=== PATIENT | male | born 1960 | race Caucasian/White ===

== ENCOUNTER 2018-10-10 12:31 | Inpatient (IN) | payer OTHER ==
[2018-10-10] MEDS ORDERED: NS 0.9% 1000 ML** 1,000 ML IV ONE (12:41)
[2018-10-10] MEDS ORDERED: Diltiazem IV* 5 MG/ML 5 ML VIAL (for loading dose/IV Push) (25 MG) IV SLOW PU ONE (12:42)
[2018-10-10] MEDS ORDERED: methylPREDNISolone 125 MG* 2 ML VIAL IV ONE (12:42)
[2018-10-10] MEDS ORDERED: Albuterol/Ipratropium NEB.SOL* Albuterol 2.5 MG/Ipratropium 0.5 MG 3 ML INH ONE (12:46)
[2018-10-10] MEDS ORDERED: Albuterol/Ipratropium NEB.SOL* Albuterol 2.5 MG/Ipratropium 0.5 MG 3 ML ONE (12:47)
[2018-10-10 12:59] LABS: Hematocrit 45 % (42-52); Hemoglobin 14.7 g/dl (14.0-18.0); Mean Corpuscular HGB Conc 33 g/dl (31-36); Mean Corpuscular Hemoglobin 30 pg (27-31); Mean Corpuscular Volume 93 fL (80-94); Mean Platelet Volume 8.7 fL (7.4-10.4); Platelet Count 271 10^3/ul (150-450); Red Blood Count 4.86 10^6/ul (4.00-5.40); Red Cell Distribution Width 14 % (10.5-15); White Blood Count 21.4 10^3/ul (3.5-10.8)
[2018-10-10 13:07] LABS: INR 1.64 (0.77-1.02)
--- NOTE | 2018-10-10 13:08 | ED ---
HPI Cardiac - HPI Summary HPI Summary: Pt is a 57 y/o male brought in by EMS who presents to the ED c/o SOB. He was sent in from [facility]. As per EMS, he was found to be in rapid AFib with a HR upwards of 200 bpm. He was given adenosine and metoprolol, and was cardioverted with 100 J. Pt states he is constantly in AFib. For the past week hes been having a lot of blood in his stool. He began with his fatigue, SOB, and tachycardia 12 hours ago. He denies any CP. Pt states he also has had a cough and rhinorrhea for the past week. He denies using alcohol or drugs. Pt is a smoker. He is on Coumadin and Digoxin. PMHx AFib , CHF, rheumatic fever, mitral valve replacement. - History of Current Complaint Stated Complaint: CHEST PAIN/PALPATATIONS Time Seen by Provider: 10/10/18 12:33 Hx Obtained From: Patient, EMS Onset/Duration: Started Hours Ago - 12, Still Present Timing: Constant Current Severity: None Pain Intensity: 0 Pain Scale Used: 0-10 Numeric Aggravating Factor(s): Nothing Alleviating Factor(s): Nothing Associated Signs and Symptoms: Positive: Shortness of Breath Related History: Similar Episode/Dx as: - constant AFib - Allergy/Home Medications Allergies/Adverse Reactions: Allergies Allergy/AdvReac Type Severity Reaction Status Date / Time tramadol [From Ultra] Allergy Rash Verified 10/10/18 13:10 Home Medications: Home Medications Allopurinol 1 tab PO DAILY 10/10/18 [History Confirmed 10/10/18] Carvedilol 1.5 tab PO DAILY 10/10/18 [History Confirmed 10/10/18] Digoxin [Digitek] 0.125 mg PO BID 10/10/18 [History Confirmed 10/10/18] Doxazosin TAB* [Cardura TAB*] 4 mg PO BEDTIME 10/10/18 [History Confirmed ] Lasix 40 mg PO DAILY 10/10/18 [History Confirmed 10/10/18] Levothyroxine TAB* [Synthroid 75 MCG TAB*] 1 tab PO DAILY 10/10/18 [History Confirmed 10/10/18] Lidocaine PATCH 5%* [Lidoderm 5% Patch*] 1 patch TRANSDERM DAILY 10/10/18 [ History Confirmed 10/10/18] Lisinopril 5 mg PO DAILY 10/10/18 [History Confirmed 10/10/18] Spironolactone 1 tab PO DAILY 10/10/18 [History Confirmed 10/10/18] Warfarin Sodium [Coumadin] 5 mg PO DAILY 10/10/18 [History Confirmed 10/10/18] PMH/Surg Hx/FS Hx/Imm Hx Cardiovascular History: Reports: Hx Atrial Fibrillation, Hx Congestive Heart Failure, Hx Valvular Heart Disease - mitral replacement, Other Cardiovascular Problems/Disorders - hx rheumatic fever Musculoskeletal History: Reports: Hx Arthritis - Surgical History Surgery Procedure, Year, and Place: mitral valve replacement Infectious Disease History: No Infectious Disease History: Denies: Traveled Outside the [place] in Last 30 Days - ` - Family History Known Family History: Negative: Cardiac Disease - Social History Alcohol Use: None Hx Substance Use: No Substance Use Type: Reports: None Hx Tobacco Use: Yes Smoking Status (MU): Current Every Day Smoker Review of Systems Positive: Fatigue Positive: Nasal Discharge Positive: Palpitations - rapid. Negative: Chest Pain Positive: Shortness Of Breath, Cough Positive: Other - hematochezia All Other Systems Reviewed And Are Negative: Yes Physical Exam - Summary Physical Exam Summary: Appearance: Well appearing, moderate-severe pain distress Skin: warm, dry, reflects adequate perfusion Head/face: normal Eyes: EOMI, KIMMIE ENT: mucous membranes moist Neck: supple, non-tender Respiratory: expiratory wheezes, crackles in bases, moving very little air, abdominal breathing Cardiovascular: tachycardic with irregularly irregular rhythm, pulses rapid and irregular Abdomen: non-tender, soft Bowel Sounds: present Musculoskeletal: normal, strength/ROM intact Neuro: normal, sensory motor intact, A&Ox3 Triage Information Reviewed: Yes Vital Signs On Initial Exam: Initial Vitals Temp Pulse Resp BP Pulse Ox 96.4 F 150 37 119/78 89 10/10/18 12:38 10/10/18 12:38 10/10/18 12:38 10/10/18 12:38 10/10/18 12:38 Vital Signs Reviewed: Yes Diagnostics - Vital Signs Vital Signs Temp Pulse Resp BP Pulse Ox 10/10/18 12:38 96.4 F 150 37 119/78 89 - Laboratory Lab Results: Lab Results 10/10/18 Range/Units 12:45 WBC 21.4 H (3.5-10.8) 10^3/ul RBC 4.86 (4.00-5.40) 10^6/ul Hgb 14.7 (14.0-18.0) g/dl Hct 45 (42-52) % MCV 93 (80-94) fL MCH 30 (27-31) pg MCHC 33 (31-36) g/dl RDW 14 (10.5-15) % Plt Count 271 (150-450) 10^3/ul MPV 8.7 (7.4-10.4) fL Neut % (Auto) Pending Lymph % (Auto) Pending Vilas % (Auto) Pending Eos % (Auto) Pending Baso % (Auto) Pending Absolute Neuts (auto) Pending Absolute Lymphs (auto) Pending Absolute Monos (auto) Pending Absolute Eos (auto) Pending Absolute Basos (auto) Pending Absolute Nucleated RBC Pending Nucleated RBC % Pending Result Diagrams: 10/10/18 12:45 10/10/18 12:45 Lab Statement: Any lab studies that have been ordered have been reviewed, and results considered in the medical decision making process. - Radiology CXR Radiology Interpretation Completed By: Radiologist Summary of Radiographic Findings: Constellation of chest x-ray findings are consistent with cardiogenic. pulmonary edema likely with small bibasilar pleural effusions. ED physician reviewed radiology report. - EKG 12:36 Cardiac Rate: Other Rate - AFib - 138 bpm EKG Rhythm: Atrial Fibrillation ST Segment: Non-Specific Summary of EKG Findings: Nl axis, baseline artifact Re-Evaluation - Re-Evaluation First Eval Re-Evaluation Time: 13:14 Change: Improved Comment: Pts HR is down to 100. His breathing is improved but still abnormal. Disposition - Course Course Of Treatment: Nurse's notes reviewed. Patient presents in extremitas with rapid atrial fibrillation and acute respiratory failure. Acute pulmonary edema seen on chest x-ray. IV fluids, etc. stopped and patient was placed on high velocity nasal CPAP by Vapotherm on arrival to the ER. He greatly improved with this. He was given IV Lasix and his heart rate slowed without IV diltiazem. He was placed on IV diltiazem drip. We are waiting for his digoxin level to return. He will have to be maintained in the ICU until stabilized. ICU physician contacted and evaluated the patient at the bedside. Patient does have a history of cardiomyopathy and rheumatic heart disease as child. - Differential Dx - Cardiopulmonary Differential Diagnoses - Cardiopulmonary: Other - Acute decompensated heart failure, noncardiogenic pulmonary edema, pneumonia, influenza, rapid atrial fibrillation, pulmonary emboli - Diagnoses Provider Diagnoses: Acute respiratory failure, Rapid atrial fibrillation, Acute decompensated heart failure - Physician Notifications Discussed Care Of Patient With: Denver Lara Time Discussed With Above Provider: 13:24 Instructed by Provider To: Admit As Inpatient - Critical Care Time Critical Care Time: 30-74 min - CCT is EXCLUSIVE of separately billable procedures. Discharge - Sign-Out/Discharge Documenting (check all that apply): Patient Departure - Admit Patient Received Moderate/Deep Sedation with Procedure: No - Discharge Plan Condition: Critical Disposition: ADMITTED TO [facility] - Billing Disposition and Condition Condition: CRITICAL Disposition: Admitted to [facility] - Attestation Statements Document Initiated by Scribe: Yes Documenting Scribe: Elisabet Sawant Provider For Whom Scribe is Documenting (Include Credential): Black Bowling MD Scribe Attestation: Elisabet Ricci, scribed for Black Bowling MD on 10/10/18 at 1703. Scribe Documentation Reviewed: Yes Provider Attestation: The documentation as recorded by the Elisabet mcdonnell accurately reflects the service I personally performed and the decisions made by Black dupont MD Status of Scribe Document: Viewed
[2018-10-10 13:15] LABS: Influenza A Molecular NEGATIVE (Negative); Influenza B Molecular NEGATIVE (Negative)
[2018-10-10] MEDS ORDERED: Furosemide IV* 10 MG/ML 10 ML VIAL (100 MG) IV ONE (13:16)
[2018-10-10 13:22] LABS: ALT 14 U/L (7-52); AST 19 U/L (13-39); Albumin 4.2 g/dL (3.2-5.2); Albumin/Globulin Ratio 1.2 (1-3); Alkaline Phosphatase 54 U/L (34-104); Anion Gap 11 mmol/L (2-11); BUN/Creatinine Ratio 15.9 (8-20); Blood Urea Nitrogen 18 mg/dL (6-24); C Reactive Protein 20.01 mg/L (<8.01); CO2 Carbon Dioxide 22 mmol/L (22-32); Calcium 8.8 mg/dL (8.6-10.3); Chloride 103 mmol/L (101-111); Creatine Kinase 85 U/L (10-223); EGFR African American 80.6 (>60); EGFR Non-African American 66.7 (>60); Globulin 3.6 g/dL (2-4); Glucose 192 mg/dL (70-100); Potassium 4.6 mmol/L (3.5-5.0); Sodium 136 mmol/L (135-145); Total Protein 7.8 g/dL (6.4-8.9)
[2018-10-10 13:25] LABS: Troponin I 0.04 ng/mL (<0.04)
[2018-10-10 13:40] LABS: ABS Basophils 0.1 10^3/ul (0-0.2); ABS Eosinophils 0 10^3/ul (0-0.6); ABS Lymphocytes 0.9 10^3/ul (1.0-4.8); ABS Neutrophils 18.4 10^3/ul (1.5-7.7); ABS Nucleated RBC 0 10^3/ul; Eosinophil % 0.2 %; Lymphocyte % 4.2 %; Nucleated Red Blood Cells % 0
[2018-10-10 13:44] LABS: Digoxin < 0.3 ng/ml (0.8-2.0)
[2018-10-10] MEDS ORDERED: Lisinopril TAB* 5 MG PO ONE (14:08)
[2018-10-10] MEDS ORDERED: Heparin DRIP 25,000 UNITS(*) 25,000 UNITS/500 ML BAG IV SCH (14:45)
[2018-10-10] MEDS ORDERED: Diltiazem IV VIAL* 125 MG in NS 0.9% 100 ML* 100 ML IV SCH (15:00)
[2018-10-10] MEDS ORDERED: Heparin VIAL(*) 5000 UNITS/ML VIAL (FIVE THOUSAND) ONE (15:25)
[2018-10-10] MEDS: Furosemide IV* 100 MG in NS 0.9% 100 ML* 90 ML IV SCH (15:30)
[2018-10-10 16:22] LABS: Magnesium 1.6 mg/dL (1.9-2.7)
[2018-10-10] MEDS: cefTRIAXone(*) 1 GM in NS 0.9% 50 ML* 50 ML IVPB SCH (16:45)
[2018-10-10] MEDS: Azithromycin IV(*) 500 MG in NS 0.9% 250 ML* 250 ML IVPB SCH (17:05)
[2018-10-10 17:09] LABS: Urine Appearance Clear; Urine Bacteria Absent (Absent); Urine Bilirubin Negative (Negative); Urine Blood 1+ (Negative); Urine Color Yellow; Urine Glucose Negative (Negative); Urine Ketones Negative (Negative); Urine Nitrite Negative (Negative); Urine Protein Negative (Negative); Urine Red Blood Cell Trace(0-2/hpf) (Absent); Urine Specific Gravity 1.006 (1.010-1.030); Urine Urobilinogen Negative (Negative); Urine White Blood Cell Absent (Absent)
--- NOTE | 2018-10-10 17:14 | HP ---
HISTORY AND PHYSICAL: DATE OF ADMISSION: CHIEF COMPLAINT: Shortness of breath. HISTORY OF PRESENT ILLNESS: The patient is a 57-year-old male with a past medical history of heart disease including mitral valve replacement, rheumatic heart disease, and atrial fibrillation. The patient was brought in by EMS to the ED with increasing shortness of breath. When he arrived in the emergency department, he was noted to be in rapid atrial fibrillation with a heart rate closer to 150 to 200s. He was given adenosine, metoprolol, and electrocardioversion was performed at 100 joules. The patient states that he has been feeling short of breath for many days. He is also reporting some fevers. He has also noticed some blood in his stool. He denies any chest pain or chest tightness. He is a current smoker. Denies any worsening cough or sputum production. He has had cough which is at his baseline. He denies any drugs or alcohol abuse. He states that he is compliant with all of his medications. He is currently a resident of a correctional facility. PAST MEDICAL HISTORY: Consists of: 1. Congestive heart failure. 2. Atrial fibrillation. 3. Rheumatic heart disease with mitral valve replacement in 2007. PAST SURGICAL HISTORY: He had mitral valve replacement in 2007. MEDICATIONS: Current medications include: 1. Allopurinol. 2. Carvedilol 1.5 mg p.o. daily. 3. Digoxin 0.125 mg twice daily. 4. tab 4 mg p.o. at bedtime. 5. Lasix 40 mg daily. 6. Synthroid mcg tablet daily. 7. Lidocaine patch. 8. Lisinopril 5 mg daily. 9. Spironolactone 1 tablet daily. ALLERGIES: To TORADOL. SOCIAL HISTORY: Denies any alcohol, drug abuse currently. He does smoke on a daily basis. FAMILY HISTORY: Negative for heart disease. REVIEW OF SYSTEMS: Positive for increasing shortness of breath, cough, sputum production, and fatigue. Remainder of the review of systems was negative. PHYSICAL EXAMINATION GENERAL: I found a middle-aged male, in respiratory distress. He was awake, alert, oriented, answering questions appropriately. VITAL SIGNS: He was afebrile with a heart rate of anywhere from 110 to 130, respiratory rate in the 30s, he was saturating 98% on 100% FiO2 via a Vapotherm mask; blood pressure was 110/72, 140/80. HEENT: Mucous membranes pink and moist. Anicteric. Oral Mucosa: There was no erythema or exudate noted. NECK: Supple. There was mild JVD. CARDIOVASCULAR: S1, S2 irregular. Tachycardia with no murmurs appreciated. ABDOMEN: Soft, nontender. Positive bowel sounds. EXTREMITIES: There was edema, but no cyanosis noted. NEUROLOGIC: He was awake, alert, oriented. Moving all 4 extremities. There were no focal deficits noted. DIAGNOSTIC STUDIES/LAB DATA: Laboratory workup revealed a WBC count of 21.4, hemoglobin of 14.7, hematocrit of 45, platelet count of 271. His INR was 1.64. He is currently on Coumadin. His ABG revealed a pH of 7.36, pCO2 of 36, pO2 of 131. Sodium 136, potassium 4.6, chloride of 103, bicarb of 22, anion gap of 11, BUN of 18, creatinine of 1.13, glucose of 192. Lactic acid was 2.3. Calcium 8.8. LFTs are within normal limits. Troponin was 0.04. C-reactive protein was 20. BNP was 544. Albumin was 4.2. Dig level of less than 0.3. Influenza A and B were negative. X-ray revealed bilateral opacities consistent with pulmonary edema versus pneumonia. EKG revealed atrial fibrillation. IMPRESSION: A 57-year-old gentleman with a past medical history of dilated cardiomyopathy, rheumatic heart disease, and valvular heart disease presents to the emergency department with increasing shortness of breath and findings of congestive heart failure. He is also noted to be in atrial fibrillation with rapid ventricular rate. The patient was started on diltiazem infusion to better control his heart rate. I also started the patient on heparin infusion since he has a history of mitral valve replacement and has been on anticoagulation for atrial fibrillation and valve indication. Other cardiac medications will be continued including lisinopril and spironolactone. Findings of increased white count and history of fever and findings on chest x- ray concerning for possible pneumonia, we will initiate ceftriaxone and azithromycin. We will order blood cultures and sputum cultures for further evaluation. Echocardiogram and a cardiology consult has been requested. History of Blood per rectum No signs of bleeding, will continue to monitor. [id number]/[facility] #: [id number] [facility]
[2018-10-10] MEDS: Digoxin TAB* 0.125 MG PO SCH (22:17)
[2018-10-10 23:42] LABS: BUN/Creatinine Ratio 18.1 (8-20); Calcium 8.7 mg/dL (8.6-10.3); EGFR Non-African American 46.3 (>60); Potassium 4.4 mmol/L (3.5-5.0)
[2018-10-11] MEDS: Levothyroxine TAB* 75 MCG TAB PO SCH (05:50)
[2018-10-11 06:04] LABS: Hematocrit 41 % (42-52); Hemoglobin 13.6 g/dl (14.0-18.0); Mean Corpuscular HGB Conc 33 g/dl (31-36); Mean Corpuscular Hemoglobin 31 pg (27-31); Mean Corpuscular Volume 93 fL (80-94); Mean Platelet Volume 9.1 fL (7.4-10.4); Platelet Count 172 10^3/ul (150-450); Red Cell Distribution Width 14 % (10.5-15)
[2018-10-11 06:19] LABS: Phosphorus 3.7 mg/dL (2.5-5.0)
[2018-10-11 06:49] LABS: Activated Partial Thrombo Time 36.2 seconds (26.0-36.3)
[2018-10-11 06:54] LABS: ABS Basophils 0.1 10^3/ul (0-0.2); ABS Eosinophils 0 10^3/ul (0-0.6); ABS Lymphocytes 0.7 10^3/ul (1.0-4.8); ABS Neutrophils 19.3 10^3/ul (1.5-7.7); ABS Nucleated RBC 0 10^3/ul; Eosinophil % 0.1 %; Lymphocyte % 3.3 %; Nucleated Red Blood Cells % 0
[2018-10-11 06:57] LABS: Magnesium 1.7 mg/dL (1.9-2.7)
[2018-10-11] MEDS ORDERED: Heparin VIAL(*) 5000 UNITS/ML VIAL (FIVE THOUSAND) ONE (07:17)
[2018-10-11] MEDS: Allopurinol TAB* 100 MG PO SCH (08:33)
[2018-10-11] MEDS: Spironolactone TAB* 25 MG PO SCH (08:33)
[2018-10-11] MEDS: Digoxin TAB* 0.125 MG PO SCH ×2 (08:33→21:49)
[2018-10-11] MEDS ORDERED: Heparin VIAL(*) 5000 UNITS/ML VIAL (FIVE THOUSAND) SUBCUT PRN (09:43)
[2018-10-11] MEDS ORDERED: Magnesium Sulfate 2 GM IV* 2 GM/50 ML BAG IVPB ONE (11:11)
[2018-10-11 12:13] LABS: INR 1.38 (0.77-1.02)
[2018-10-11] MEDS: methylPREDNISolone SOD 40 MG* 1 ML VIAL IV SCH (12:46)
[2018-10-11] MEDS: Furosemide IV* 10 MG/ML VIAL (40 MG) IV SLOW PU SCH (12:46)
[2018-10-11] MEDS: Enoxaparin(*) 150 MG/ML 1 ML SYRINGE SUBCUT SCH (12:46)
--- NOTE | 2018-10-11 12:52 | PN ---
Progress Note - Progress Note Date of Service: 10/11/18 - Progress note Note: Pt seen and examined at bedside this am. Pt reports feeling better. Reports he couldnot sleep well last night, woke up with gaping episodes. Pt has h/o sleep apnea, has not been on CPAP. Pt reported that he has not been receiving necessary CPAP supplies at [facility], was not able to receive distilled water and couldnot use CPAP. He also reports having dry nasal passages. He was admitted for SOB yesterday Active Medications Generic Name Dose Route Start Last Admin Trade Name Marlon PRN Reason Stop Dose Admin Allopurinol 100 mg 10/11/18 09:00 10/11/18 08:33 Zyloprim Tab* PO 100 mg DAILY RICCARDO Administration Digoxin 0.125 mg 10/10/18 21:00 10/11/18 08:33 Lanoxin Tab* PO 0.125 mg BID RICCARDO Administration Enoxaparin Sodium 120 mg 10/11/18 12:00 Lovenox(*) SUBCUT Q12H RICCARDO Furosemide 40 mg 10/11/18 12:00 Lasix Iv* IV SLOW PU DAILY [facility] Ceftriaxone Sodium 1 gm/ 50 mls @ 200 mls/hr 10/10/18 15:00 10/10/18 16:45 Sodium Chloride IVPB 200 mls/hr Q24H RICCARDO Administration Azithromycin 500 mg/ Sodium 250 mls @ 250 mls/hr 10/10/18 16:00 10/10/18 17: 05 Chloride IVPB 250 mls/hr Q24H RICCARDO Administration Levothyroxine Sodium 75 mcg 10/11/18 06:00 10/11/18 05:50 Synthroid Tab* PO 75 mcg DAILY@0600 RICCARDO Administration Methylprednisolone Sodium Succinate 40 mg 10/11/18 12:00 Solu-Medrol 40 Mg IV Q12H [facility] Pharmacy Profile Note 1 note 10/11/18 17:00 Coumadin Per Pharmacy* FOLLOW UP .PER PHARMACY PROTOC [facility] Protocol Spironolactone 25 mg 10/11/18 09:00 10/11/18 08:33 Aldactone Tab* PO 25 mg DAILY RICCARDO Administration Warfarin Sodium 5 mg 10/11/18 17:00 Coumadin Tab(*) PO DAILY@1700 [facility] Protocol Vital Signs Temp Pulse Resp BP Pulse Ox 98.1 F 61 28 89/63 97 10/11/18 11:32 10/11/18 11:32 10/11/18 12:01 10/11/18 11:32 10/11/18 11:32 O/E: Pt in NAD HEENT: PERRLA, No JVD Lungs: Diminished air entry at bases CVS: S1, S2+, irregular Abd: Soft, BS+ Ext: Normal ROM Neuro: No focal deficits Skin: No rash Laboratory Results - last 24 hr 10/10/18 10/10/18 10/10/18 12:45 12:45 12:45 WBC 21.4 H RBC 4.86 Hgb 14.7 Hct 45 MCV 93 MCH 30 MCHC 33 RDW 14 Plt Count 271 MPV 8.7 Neut % (Auto) 85.9 Lymph % (Auto) 4.2 Calloway % (Auto) 9.2 Eos % (Auto) 0.2 Baso % (Auto) 0.5 Absolute Neuts (auto) 18.4 H Absolute Lymphs (auto) 0.9 L Absolute Monos (auto) 2.0 H Absolute Eos (auto) 0 Absolute Basos (auto) 0.1 Absolute Nucleated RBC 0 Nucleated RBC % 0 INR (Anticoag Therapy) 1.64 H APTT Patient Temperature ABG pH ABG pH (Temp Correct) ABG pCO2 ABG pCO2 (Temp Corrct ABG pO2 ABG pO2 (Temp Correct ABG HCO3 ABG O2 Saturation ABG Base Excess Respiration Rate O2 Delivery Device Ventilator Type Vent Mode FiO2 Inspiratory Time PEEP Pressure Support Pressure Control EPAP IPAP BiPAP Sodium 136 Potassium 4.6 Chloride 103 Carbon Dioxide 22 Anion Gap 11 BUN 18 Creatinine 1.13 Est GFR ( Amer) 80.6 Est GFR (Non-Af Amer) 66.7 BUN/Creatinine Ratio 15.9 Glucose 192 H Lactic Acid Calcium 8.8 Phosphorus Magnesium 1.6 L Total Bilirubin 1.00 AST 19 ALT 14 Alkaline Phosphatase 54 Total Creatine Kinase 85 Troponin I 0.04 H* C-Reactive Protein 20.01 H B-Natriuretic Peptide Total Protein 7.8 Albumin 4.2 Globulin 3.6 Albumin/Globulin Ratio 1.2 Urine Color Urine Appearance Urine pH Ur Specific Martin Urine Protein Urine Ketones Urine Blood Urine Nitrate Urine Bilirubin Urine Urobilinogen Ur Leukocyte Esterase Urine WBC (Auto) Urine RBC (Auto) Urine Bacteria Urine Glucose Digoxin < 0.3 L Influenza A (Rapid) Influenza B (Rapid) 10/10/18 10/10/18 10/10/18 12:45 12:45 13:03 WBC RBC Hgb Hct MCV MCH MCHC RDW Plt Count MPV Neut % (Auto) Lymph % (Auto) Calloway % (Auto) Eos % (Auto) Baso % (Auto) Absolute Neuts (auto) Absolute Lymphs (auto) Absolute Monos (auto) Absolute Eos (auto) Absolute Basos (auto) Absolute Nucleated RBC Nucleated RBC % INR (Anticoag Therapy) APTT Patient Temperature ABG pH ABG pH (Temp Correct) ABG pCO2 ABG pCO2 (Temp Corrct ABG pO2 ABG pO2 (Temp Correct ABG HCO3 ABG O2 Saturation ABG Base Excess Respiration Rate O2 Delivery Device Ventilator Type Vent Mode FiO2 Inspiratory Time PEEP Pressure Support Pressure Control EPAP IPAP BiPAP Sodium Potassium Chloride Carbon Dioxide Anion Gap BUN Creatinine Est GFR ( Amer) Est GFR (Non-Af Amer) BUN/Creatinine Ratio Glucose Lactic Acid 2.3 H* Calcium Phosphorus Magnesium Total Bilirubin AST ALT Alkaline Phosphatase Total Creatine Kinase Troponin I C-Reactive Protein B-Natriuretic Peptide 544 H Total Protein Albumin Globulin Albumin/Globulin Ratio Urine Color Urine Appearance Urine pH Ur Specific Martin Urine Protein Urine Ketones Urine Blood Urine Nitrate Urine Bilirubin Urine Urobilinogen Ur Leukocyte Esterase Urine WBC (Auto) Urine RBC (Auto) Urine Bacteria Urine Glucose Digoxin Influenza A (Rapid) Negative Influenza B (Rapid) Negative 10/10/18 10/10/18 10/10/18 13:30 16:00 22:25 WBC RBC Hgb Hct MCV MCH MCHC RDW Plt Count MPV Neut % (Auto) Lymph % (Auto) Calloway % (Auto) Eos % (Auto) Baso % (Auto) Absolute Neuts (auto) Absolute Lymphs (auto) Absolute Monos (auto) Absolute Eos (auto) Absolute Basos (auto) Absolute Nucleated RBC Nucleated RBC % INR (Anticoag Therapy) APTT 87.5 H Patient Temperature Not Reportable ABG pH 7.36 ABG pH (Temp Correct) Not Reportable ABG pCO2 36 ABG pCO2 (Temp Corrct Not Reportable ABG pO2 131 H ABG pO2 (Temp Correct Not Reportable ABG HCO3 21.4 ABG O2 Saturation 99.6 H ABG Base Excess -4.5 L Respiration Rate Not Reportable O2 Delivery Device vapo Ventilator Type Not Reportable Vent Mode Not Reportable FiO2 100 Inspiratory Time Not Reportable PEEP Not Reportable Pressure Support Not Reportable Pressure Control Not Reportable EPAP Not Reportable IPAP Not Reportable BiPAP Not Reportable Sodium Potassium Chloride Carbon Dioxide Anion Gap BUN Creatinine Est GFR ( Amer) Est GFR (Non-Af Amer) BUN/Creatinine Ratio Glucose Lactic Acid Calcium Phosphorus Magnesium Total Bilirubin AST ALT Alkaline Phosphatase Total Creatine Kinase Troponin I C-Reactive Protein B-Natriuretic Peptide Total Protein Albumin Globulin Albumin/Globulin Ratio Urine Color Yellow Urine Appearance Clear Urine pH 5.0 Ur Specific Martin 1.006 L Urine Protein Negative Urine Ketones Negative Urine Blood 1+ A Urine Nitrate Negative Urine Bilirubin Negative Urine Urobilinogen Negative Ur Leukocyte Esterase Negative Urine WBC (Auto) Absent Urine RBC (Auto) Trace(0-2/hpf) Urine Bacteria Absent Urine Glucose Negative Digoxin Influenza A (Rapid) Influenza B (Rapid) 10/10/18 10/11/18 10/11/18 22:25 05:55 05:55 WBC 21.0 H RBC 4.40 Hgb 13.6 L Hct 41 L MCV 93 MCH 31 MCHC 33 RDW 14 Plt Count 172 MPV 9.1 Neut % (Auto) 91.7 Lymph % (Auto) 3.3 Calloway % (Auto) 4.5 Eos % (Auto) 0.1 Baso % (Auto) 0.4 Absolute Neuts (auto) 19.3 H Absolute Lymphs (auto) 0.7 L Absolute Monos (auto) 1.0 H Absolute Eos (auto) 0 Absolute Basos (auto) 0.1 Absolute Nucleated RBC 0 Nucleated RBC % 0 INR (Anticoag Therapy) APTT Patient Temperature ABG pH ABG pH (Temp Correct) ABG pCO2 ABG pCO2 (Temp Corrct ABG pO2 ABG pO2 (Temp Correct ABG HCO3 ABG O2 Saturation ABG Base Excess Respiration Rate O2 Delivery Device Ventilator Type Vent Mode FiO2 Inspiratory Time PEEP Pressure Support Pressure Control EPAP IPAP BiPAP Sodium 135 Potassium 4.4 Chloride 101 Carbon Dioxide 23 Anion Gap 11 BUN 28 H Creatinine 1.55 H Est GFR ( Amer) 56.0 Est GFR (Non-Af Amer) 46.3 BUN/Creatinine Ratio 18.1 Glucose 163 H Lactic Acid Calcium 8.7 Phosphorus 3.7 Magnesium 1.7 L Total Bilirubin AST ALT Alkaline Phosphatase Total Creatine Kinase Troponin I C-Reactive Protein B-Natriuretic Peptide Total Protein Albumin Globulin Albumin/Globulin Ratio Urine Color Urine Appearance Urine pH Ur Specific Martin Urine Protein Urine Ketones Urine Blood Urine Nitrate Urine Bilirubin Urine Urobilinogen Ur Leukocyte Esterase Urine WBC (Auto) Urine RBC (Auto) Urine Bacteria Urine Glucose Digoxin Influenza A (Rapid) Influenza B (Rapid) 10/11/18 05:55 WBC RBC Hgb Hct MCV MCH MCHC RDW Plt Count MPV Neut % (Auto) Lymph % (Auto) Calloway % (Auto) Eos % (Auto) Baso % (Auto) Absolute Neuts (auto) Absolute Lymphs (auto) Absolute Monos (auto) Absolute Eos (auto) Absolute Basos (auto) Absolute Nucleated RBC Nucleated RBC % INR (Anticoag Therapy) 1.38 H APTT 36.2 Patient Temperature ABG pH ABG pH (Temp Correct) ABG pCO2 ABG pCO2 (Temp Corrct ABG pO2 ABG pO2 (Temp Correct ABG HCO3 ABG O2 Saturation ABG Base Excess Respiration Rate O2 Delivery Device Ventilator Type Vent Mode FiO2 Inspiratory Time PEEP Pressure Support Pressure Control EPAP IPAP BiPAP Sodium Potassium Chloride Carbon Dioxide Anion Gap BUN Creatinine Est GFR ( Amer) Est GFR (Non-Af Amer) BUN/Creatinine Ratio Glucose Lactic Acid Calcium Phosphorus Magnesium Total Bilirubin AST ALT Alkaline Phosphatase Total Creatine Kinase Troponin I C-Reactive Protein B-Natriuretic Peptide Total Protein Albumin Globulin Albumin/Globulin Ratio Urine Color Urine Appearance Urine pH Ur Specific Martin Urine Protein Urine Ketones Urine Blood Urine Nitrate Urine Bilirubin Urine Urobilinogen Ur Leukocyte Esterase Urine WBC (Auto) Urine RBC (Auto) Urine Bacteria Urine Glucose Digoxin Influenza A (Rapid) Influenza B (Rapid) I/R: 57 y o m with h/o rheumatic heart disease with mitral valvve disease a/w SOB, found to be in A.fib with RVR and fluid overloaded. Pt was started on cardizem drip that was tapered off, diuresed with Lasix. Pt improved this am, off Cardizem drip c/w Digoxin D/freddy heparin drip and switched to Lovenox, will start dosing Coumadin Prior EF not known, ECHO pending He has smoking history, not dx with COPD in the past, no wheeze on auscultation today He is requiring O2, will titrate as tolerated to keep O2 above 92% c/w bronchodilators prn Had elevated WBC count on admission, had fever prior to admission and was started on abx. Septic w/u negative to date Lactate elevated on admission, will f/u Magnesium repleted Cardiac diet Smoking cessation education and counseling C/w steroid taper For transfer to medical floor
[2018-10-11 13:05] LABS: BUN/Creatinine Ratio 25.6 (8-20); Calcium 8.9 mg/dL (8.6-10.3); EGFR African American 74.5 (>60); EGFR Non-African American 61.6 (>60); Potassium 4.4 mmol/L (3.5-5.0)
[2018-10-11 13:22] LABS: BUN/Creatinine Ratio 31.6 (8-20); EGFR African American 77.5 (>60); Potassium 4.2 mmol/L (3.5-5.0)
[2018-10-11] MEDS: Furosemide IV* 100 MG in NS 0.9% 100 ML* 90 ML IV SCH (16:01)
[2018-10-11] MEDS: cefTRIAXone(*) 1 GM in NS 0.9% 50 ML* 50 ML IVPB SCH (17:15)
[2018-10-11] MEDS: Azithromycin IV(*) 500 MG in NS 0.9% 250 ML* 250 ML IVPB SCH (21:48)
[2018-10-11] MEDS: Warfarin TAB(*) 5 MG PO SCH (21:48)
[2018-10-12] MEDS: Enoxaparin(*) 150 MG/ML 1 ML SYRINGE SUBCUT SCH ×3 (00:18→23:54)
[2018-10-12] MEDS: methylPREDNISolone SOD 40 MG* 1 ML VIAL IV SCH ×2 (00:19→11:55)
[2018-10-12] MEDS: Acetaminophen TAB* 325 MG PO PRN ×2 (01:36→16:06)
[2018-10-12] MEDS: Gabapentin CAP(*) 100 MG PO SCH ×3 (01:37→20:39)
[2018-10-12 05:41] LABS: Hematocrit 40 % (42-52); Hemoglobin 13.2 g/dl (14.0-18.0); Mean Corpuscular HGB Conc 33 g/dl (31-36); Mean Corpuscular Hemoglobin 31 pg (27-31); Mean Corpuscular Volume 93 fL (80-94); Mean Platelet Volume 9.5 fL (7.4-10.4); Platelet Count 200 10^3/ul (150-450); Red Blood Count 4.33 10^6/ul (4.00-5.40); Red Cell Distribution Width 14 % (10.5-15); White Blood Count 23.1 10^3/ul (3.5-10.8)
[2018-10-12] MEDS: Levothyroxine TAB* 75 MCG TAB PO SCH (05:41)
[2018-10-12 05:48] LABS: INR 1.24 (0.77-1.02)
[2018-10-12 05:59] LABS: BUN/Creatinine Ratio 41.9 (8-20); Calcium 8.9 mg/dL (8.6-10.3); EGFR African American 77.5 (>60)
[2018-10-12 06:09] LABS: ABS Basophils 0 10^3/ul (0-0.2); ABS Eosinophils 0 10^3/ul (0-0.6); ABS Lymphocytes 0.8 10^3/ul (1.0-4.8); ABS Monocytes 1.1 10^3/ul (0-0.8); ABS Neutrophils 21.2 10^3/ul (1.5-7.7); ABS Nucleated RBC 0 10^3/ul; Eosinophil % 0 %; Lymphocyte % 3.3 %; Nucleated Red Blood Cells % 0
[2018-10-12] MEDS: Digoxin TAB* 0.125 MG PO SCH ×2 (08:25→20:38)
[2018-10-12] MEDS: Furosemide IV* 10 MG/ML VIAL (40 MG) IV SLOW PU SCH (08:25)
[2018-10-12] MEDS: Spironolactone TAB* 25 MG PO SCH (08:25)
[2018-10-12] MEDS: Allopurinol TAB* 100 MG PO SCH (08:25)
[2018-10-12 09:25] LABS: C Reactive Protein 63.76 mg/L (<8.01); Magnesium 2.2 mg/dL (1.9-2.7)
[2018-10-12] MEDS ORDERED: Perflutren Lipid Microsphere* 3 ML VIAL ONE (13:18)
--- NOTE | 2018-10-12 15:00 | PN ---
Subjective Date of Service: 10/12/18 Interval History: Called to patient's bedside by nurse who reports patient was stating he was having chest pain "6 " out of 10 in the center of his chest. When I arrived at the bedside patient denied having chest pain and reports the last time he had chest "pressure" was last evening when the nurse mentioned he had an "arrhythmia ". Tele reveal 4 and 9 beat run of VT last evening. Patient reports he continues to wake in the evening gasping for air which scares his and causes heart to race occasionally. He initially reports he is not complaint with cpap machine, but when told this could be the cause of his symptoms he recants and states he is complaint. Patient wants to talk at length about the services he is not provided at his facility including distilled water for his cpap machine and wheelchair. He reports he believes he current situation is being forced to walk at his facility and not allowed to use wheelchair. Currently patient denies chest pain, sob, palpitations, nausea, vomiting, diarrhea, fever, chills. Objective Active Medications: Acetaminophen (Tylenol Tab*) 650 mg PO Q4H PRN PRN Reason: PAIN Last Admin: 10/12/18 01:36 Dose: 650 mg Allopurinol (Zyloprim Tab*) 100 mg PO DAILY ON LICENSE OF [facility] Last Admin: 10/12/18 08:25 Dose: 100 mg Digoxin (Lanoxin Tab*) 0.125 mg PO BID ON LICENSE OF [facility] Last Admin: 10/12/18 08:25 Dose: 0.125 mg Enoxaparin Sodium (Lovenox(*)) 120 mg SUBCUT Q12H ON LICENSE OF [facility] Last Admin: 10/12/18 11:55 Dose: 120 mg Furosemide (Lasix Iv*) 40 mg IV SLOW PU DAILY ON LICENSE OF [facility] Last Admin: 10/12/18 08:25 Dose: 40 mg Gabapentin (Neurontin Cap(*)) 100 mg PO BID ON LICENSE OF [facility] Last Admin: 10/12/18 08:25 Dose: 100 mg Ceftriaxone Sodium 1 gm/ (Sodium Chloride) 50 mls @ 200 mls/hr IVPB Q24H ON LICENSE OF [facility] Last Admin: 10/11/18 17:15 Dose: 200 mls/hr Azithromycin 500 mg/ Sodium (Chloride) 250 mls @ 250 mls/hr IVPB Q24H ON LICENSE OF [facility] Last Admin: 10/11/18 21:48 Dose: 250 mls/hr Levothyroxine Sodium (Synthroid Tab*) 75 mcg PO DAILY@0600 ON LICENSE OF [facility] Last Admin: 10/12/18 05:41 Dose: 75 mcg Methylprednisolone Sodium Succinate (Solu-Medrol 40 Mg) 40 mg IV Q12H ON LICENSE OF [facility] Last Admin: 10/12/18 11:55 Dose: 40 mg Spironolactone (Aldactone Tab*) 25 mg PO DAILY ON LICENSE OF [facility] Last Admin: 10/12/18 08:25 Dose: 25 mg Warfarin Sodium (Coumadin Tab(*)) 5 mg PO DAILY@1700 ON LICENSE OF [facility]; Protocol Last Admin: 10/11/18 21:48 Dose: 5 mg Vital Signs - 8 hr 10/12/18 10/12/18 10/12/18 08:00 08:03 08:25 Temperature 97.6 F Pulse Rate 60 75 Respiratory 18 20 15 Rate Blood Pressure 110/67 (mmHg) O2 Sat by Pulse 100 Oximetry 10/12/18 10/12/18 11:02 14:19 Temperature 97.2 F Pulse Rate 81 Respiratory 22 Rate Blood Pressure 134/73 (mmHg) O2 Sat by Pulse 98 100 Oximetry Oxygen Devices in Use Now: None Appearance: Comfortable, NAD Eyes: No Scleral Icterus Ears/Nose/Mouth/Throat: Clear Oropharnyx, Mucous Membranes Moist Neck: NL Appearance and Movements; NL JVP Respiratory: Symmetrical Chest Expansion and Respiratory Effort, Clear to Auscultation Cardiovascular: NL Sounds; No Murmurs; No JVD, No Edema, - - Irregular rhythm but rate controlled Abdominal: NL Sounds; No Tenderness; No Distention Lymphatic: No Cervical Adenopathy Extremities: No Clubbing, Cyanosis Skin: No Rash or Ulcers Neurological: Alert and Oriented x 3 Nutrition: Taking PO's Result Diagrams: 10/12/18 05:28 10/12/18 05:28 Additional Lab and Data: Laboratory Results - last 24 hr 10/12/18 10/12/18 10/12/18 05:28 05:28 05:28 WBC 23.1 H RBC 4.33 Hgb 13.2 L Hct 40 L MCV 93 MCH 31 MCHC 33 RDW 14 Plt Count 200 MPV 9.5 Neut % (Auto) 91.9 Lymph % (Auto) 3.3 Taylor % (Auto) 4.7 Eos % (Auto) 0 Baso % (Auto) 0.1 Absolute Neuts (auto) 21.2 H Absolute Lymphs (auto) 0.8 L Absolute Monos (auto) 1.1 H Absolute Eos (auto) 0 Absolute Basos (auto) 0 Absolute Nucleated RBC 0 Nucleated RBC % 0 INR (Anticoag Therapy) 1.24 H Sodium 133 L Potassium 5.0 Chloride 101 Carbon Dioxide 26 Anion Gap 6 BUN 49 H Creatinine 1.17 Est GFR ( Amer) 77.5 Est GFR (Non-Af Amer) 64.0 BUN/Creatinine Ratio 41.9 H Glucose 135 H Calcium 8.9 Magnesium 2.2 C-Reactive Protein 63.76 H B-Natriuretic Peptide 10/12/18 05:28 WBC RBC Hgb Hct MCV MCH MCHC RDW Plt Count MPV Neut % (Auto) Lymph % (Auto) Taylor % (Auto) Eos % (Auto) Baso % (Auto) Absolute Neuts (auto) Absolute Lymphs (auto) Absolute Monos (auto) Absolute Eos (auto) Absolute Basos (auto) Absolute Nucleated RBC Nucleated RBC % INR (Anticoag Therapy) Sodium Potassium Chloride Carbon Dioxide Anion Gap BUN Creatinine Est GFR ( Amer) Est GFR (Non-Af Amer) BUN/Creatinine Ratio Glucose Calcium Magnesium C-Reactive Protein B-Natriuretic Peptide 389 H Microbiology and Other Data: Microbiology Microbiology 10/11/18 07:44 Blood Venous Aerobic Blood Culture - Preliminary No Growth Day 1 10/11/18 07:44 Blood Venous Anaerobic Blood Culture - Final Not Reportable 10/11/18 07:51 Blood Venous Blood Culture - Preliminary No Growth Day 1 10/10/18 16:00 Nasal Nasal Screen MRSA (PCR) - Final Mrsa Not Detected 10/10/18 12:45 Nasopharyngeal Influenza Types A,B Antigen - Final Specimen received for Influenza A/B Molecular testing Assess/Plan/Problems-Billing Assessment: 57 yr old male with pmh of heart disease including mitral valve replacement, rheumatic heart disease and atrial fibrillation who was brought to ED due to shortness of breath and was found to be in afib with HR of 150s to 200 - Patient Problems (1) Atrial fibrillation Comment: - S/P cardioversion and diltiazem drip. Drip titrated and patient on Digoxin. - Afib/flutter with rate 70s to 80s on tele - Was on Heparin drip, now bridge back to coumadin - Cardiology not on board currently as patient is rate controlled, but will consult if changes. (2) Cardiomyopathy Comment: - Found to be in fluid overload on admission and diuresed with Lasix - Now appears euvolemic - Echo completed today and notes estimated EF of 30 to 35%; Requested records for previous echo to compare (3) Rheumatic heart disease Comment: - S/P mitral valve replacement - Bridge with lovenox back to home coumadin (4) Shortness of breath Comment: - Given shortness of breath, leukocytosis, chest xray results, and history of fever; patient was started on Zithro (day 3) and Rocephin (day 3) - Initially requring O2, but now oxygen saturation wnl on room air. - Was on IV steriods; PO prednisone starting tomorrow (5) Sleep apnea Comment: - Noncomplaint - Ordered placed for hospital Cpap - Educated on risks of untreated sleep apnea (6) Ventricular tachycardia Comment: - Last evening had a 4 beat run of VT and then a 9 beat run of VT - Mag 2.2 and K + 5.0 (7) Full code status (8) DVT prophylaxis Comment: - Lovenox and bridging to home coumadin Points of Discussion: Inpatient. Attending: Jc Singh
--- NOTE | 2018-10-12 15:04 | ECHO ---
Patient: REINA SANDERSON [id number] [facility] Rec#: [id number] : 1960 Date: 10/12/2018 Age: 57y Height: 178 cm / 70.1 in Weight: 121 kg / 266.7 lbs Sex: M BSA: 2.36 Room#: 451 Admit Date#: 10/10/2018 Type: Inpatient Referring: Nisha Bray Reading: Cristo Lara MD Sugar Drier: Shanel Askew RDCS CC: David Kiran MD Transthoracic Echocardiogram Indication: Valvular disease BP: 119/60 HR: 81 Rhythm: A-Fib Findings History: GARY, Mitral valve replacement 2007, rheumatic heart disease, a-fib, dilated cardiomyopathy. Technical Comments: The study is technically difficult. The study is technically limited due to patient body habitus. Completed at 1400. Left Ventricle: The left ventricular chamber size is mildly dilated. Mild concentric left ventricular hypertrophy is observed. There is global hypokinesis of the left ventricle with minor regional variation. There is moderately decreased left ventricular systolic function. The estimated ejection fraction is 30-35%. Post surgical hypokinesis of the interventricular septum is observed consistent with valve replacement. There is septal flattening of the interventricular septum consistent with right ventricular volume or pressure overload. The assessment of diastolic function is non-diagnostic. Left Atrium: The left atrium is severely dilated. Right Ventricle: The right ventricle wall thickness is mildly increased. The right ventricle is moderately dilated. The right ventricular global systolic function is moderately reduced. Right Atrium: The right atrial cavity size is severely dilated. Aortic Valve: The aortic valve is trileaflet. The aortic valve leaflets are mildly thickened. There is trace to mild aortic regurgitation. There is no evidence of aortic stenosis. Mitral Valve: The mitral valve leaflets are mildly thickened. There is a trace of mitral regurgitation. There is no evidence of mitral stenosis. The mean gradient across the mitral valve is 12 mmHg. The peak gradient across the mitral valve is 25 mmHg. The pressure half time of the mitral valve is 102 msec. The mitral valve area, by pressure half time, is calculated at 2.2 cm2. A bioprosthetic mitral valve is present. Tricuspid Valve: The tricuspid valve structure is not well visualized. There is trace to mild tricuspid regurgitation. Unable to estimate the right ventricular systolic pressure. There is no tricuspid stenosis. Pulmonic Valve: The pulmonic valve appears normal. There is trace to mild pulmonic regurgitation. There is no pulmonic stenosis. Pericardium: There is no significant pericardial effusion. A pericardial fat pad is visualized. Aorta: There is no dilatation of the ascending aorta. The aortic arch is not well visualized. The aortic root is normal in size. Pulmonary Artery: The main pulmonary artery is not well visualized. Venous: The inferior vena cava is dilated. There is a greater than 50% respiratory change in the inferior vena cava dimension. Contrast: Definity was used to optimize study. 3 mL of diluted Definity were utilized. Intravenous contrast was used to enhance endocardial border definition. Summary: There was not any prior study for comparison. Conclusions There is global hypokinesis of the left ventricle with minor regional variation. The estimated ejection fraction is 30-35%. There is moderately decreased left ventricular systolic function. Post surgical hypokinesis of the interventricular septum is observed consistent with valve replacement. The right ventricular global systolic function is moderately reduced. The aortic valve leaflets are mildly thickened. There is trace to mild aortic regurgitation. There is no evidence of aortic stenosis. A bioprosthetic mitral valve is present. There is a trace of mitral regurgitation. The mean gradient across the mitral valve is 12 mmHg. The mitral valve area, by pressure half time, is calculated at 2.2 cm2. There is trace to mild tricuspid regurgitation. Unable to estimate the right ventricular systolic pressure. There is no significant pericardial effusion. Measurements Name Value Normal Range RVIDd (AP) 2D 3.1 cm (0.9 - 2.6) RVDdMajor (2D) 5.5 cm (2.2 - 4.4) RVAW (2D) 0.7 cm (0.2 - 0.5) RAd ISD 4CH 6.1 cm (3.4 - 4.9) RA (A4C)W 4.3 cm (2.9 - 4.6) IVSd (2D) 1.2 cm (0.6 - 1) LVPWd (2D) 1.2 cm (0.6 - 1) LVIDd (2D) 5.9 cm (3.6 - 5.4) LVIDs (2D) 5 cm - LV FS (2D) 15 % (25 - 45) Aortic Annulus 2.3 cm (1.4 - 2.6) Ao root diameter (2D) 3.5 cm (2.1 - 3.5) Ascending Ao 3.4 cm (2.1 - 3.4) LA dimension (AP) 2D 4.5 cm (2.3 - 3.8) LAd ISD 4CH 5.8 cm (2.9 - 5.3) LA ISD 4CH W 4.8 cm (2.5 - 4.5) Name Value Normal Range LA ESV BP (A/L) index 41 ml/m2 - Name Value Normal Range MV E-wave Vmax 1.7 m/sec - MV deceleration time 419 msec - LV septal e' Vmax 0.07 m/sec - LV lateral e' Vmax 0.08 m/sec - LV E:e' septal ratio 24 ratio - LV E:e' lateral ratio 21.3 ratio - Name Value Normal Range AV Vmax 1.4 m/sec - AV VTI 23 cm - AV peak gradient 8 mmHg - AV mean gradient 4 mmHg - LVOT diameter 2.2 cm - LVOT Vmax 0.9 m/sec - LVOT VTI 14 cm - LVOT peak gradient 4 mmHg - LVOT mean gradient 2 mmHg - Name Value Normal Range MV Vmax 2.5 m/sec - MV VTI 55 cm - MV peak gradient 25 mmHg - MV mean gradient 12 mmHg - MV PHT 102 msec - MVA (PHT) 2.2 cm2 - Name Value Normal Range IVC diameter 3.1 cm - Name Value Normal Range PV Vmax 1 m/sec - PV peak gradient 4 mmHg - VA end-diastolic Vmax 1.3 m/sec - PA end-diastolic pressur7 mmHg -
[2018-10-12] MEDS: cefTRIAXone(*) 1 GM in NS 0.9% 50 ML* 50 ML IVPB SCH (15:23)
[2018-10-12] MEDS: Azithromycin IV(*) 500 MG in NS 0.9% 250 ML* 250 ML IVPB SCH (15:48)
[2018-10-12] MEDS: Warfarin TAB(*) 5 MG PO SCH (16:06)
[2018-10-13] MEDS: Levothyroxine TAB* 75 MCG TAB PO SCH (05:56)
[2018-10-13 06:35] LABS: Hematocrit 42 % (42-52); Hemoglobin 13.6 g/dl (14.0-18.0); Mean Corpuscular HGB Conc 33 g/dl (31-36); Mean Corpuscular Hemoglobin 30 pg (27-31); Mean Corpuscular Volume 93 fL (80-94); Mean Platelet Volume 9.1 fL (7.4-10.4); Platelet Count 213 10^3/ul (150-450); Red Blood Count 4.52 10^6/ul (4.00-5.40); Red Cell Distribution Width 14 % (10.5-15); White Blood Count 22.8 10^3/ul (3.5-10.8)
[2018-10-13 06:40] LABS: ABS Basophils 0 10^3/ul (0-0.2); ABS Eosinophils 0 10^3/ul (0-0.6); ABS Lymphocytes 0.8 10^3/ul (1.0-4.8); ABS Monocytes 1.5 10^3/ul (0-0.8); ABS Neutrophils 20.4 10^3/ul (1.5-7.7); ABS Nucleated RBC 0 10^3/ul; Eosinophil % 0 %; Lymphocyte % 3.7 %; Nucleated Red Blood Cells % 0
[2018-10-13 06:52] LABS: BUN/Creatinine Ratio 41.8 (8-20); Calcium 9.1 mg/dL (8.6-10.3); EGFR African American 94.7 (>60); EGFR Non-African American 78.3 (>60); Magnesium 2.2 mg/dL (1.9-2.7); Potassium 4.5 mmol/L (3.5-5.0)
[2018-10-13] MEDS: Acetaminophen TAB* 325 MG PO PRN (08:25)
[2018-10-13] MEDS: Allopurinol TAB* 100 MG PO SCH (08:26)
[2018-10-13] MEDS: Digoxin TAB* 0.125 MG PO SCH (08:28)
[2018-10-13] MEDS: Spironolactone TAB* 25 MG PO SCH (08:29)
[2018-10-13] MEDS: Gabapentin CAP(*) 100 MG PO SCH (08:29)
[2018-10-13] MEDS: Furosemide IV* 10 MG/ML VIAL (40 MG) IV SLOW PU SCH (08:29)
[2018-10-13 08:55] LABS: INR 1.52 (0.77-1.02)
[2018-10-13] MEDS ORDERED: predniSONE TAB* 20 MG PO SCH (09:00)
[2018-10-13] MEDS ORDERED: Azithromycin TAB* 250 MG PO SCH (09:00)
[2018-10-13] MEDS: Enoxaparin(*) 150 MG/ML 1 ML SYRINGE SUBCUT SCH (13:44)
[2018-10-13] MEDS ORDERED: Metoprolol Tartrate TAB* 25 MG PO SCH (15:21)
[2018-10-13] MEDS: cefTRIAXone(*) 1 GM in NS 0.9% 50 ML* 50 ML IVPB SCH (15:39)
[2018-10-13] MEDS ORDERED: Metoprolol Tartrate IV* 1 MG/ML 5 ML VIAL IV ONE (15:46)
[2018-10-13] MEDS ORDERED: Warfarin TAB(*) 7.5 MG PO SCH (17:00)
[2018-10-13 19:24] VITALS: BP 132/58
--- NOTE | 2018-10-14 23:59 | DS ---
CC: [facility]; Dr. Lara; Dr. Jc Singh* DISCHARGE SUMMARY: DATE OF ADMISSION: 10/10/18 DATE OF DISCHARGE: 10/13/18 PRIMARY CARE PROVIDER: Clinic at the [facility]. ADMITTING PROVIDER: Dr. Lara, ICU marine service operator. MY ATTENDING FOR THIS DISCHARGE: Dr. Jc Singh* (dictated by Jorge A Redding NP). HOSPITAL COURSE: Please refer to the admitting H and P by Dr. Lara but in short, this is a gentleman who arrived from the [facility] with complaint of shortness of breath. The patient states his shortness of breath had been increasing over the course of the week. He does have a significant cardiac history including rheumatic heart disease, chronic atrial fibrillation, mitral valve replacement, and hypertension. The patient was found to be in atrial fibrillation with rapid ventricular response. His rate was in the 200s. He was initially given adenosine, metoprolol with no response. He was cardioverted at 100 joules. At that point, the patient was placed on Cardizem drip and was brought to the ICU for titration of his drip. He was also at that point placed on heparin IV secondary to his mechanical valve. His INR was noted to be subtherapeutic. His BNP mildly elevated indicating volume overload , likely secondary to being on prolonged atrial fibrillation. The patient was diuresed with Lasix. He was titrated off the diltiazem infusion. He was transitioned to Lovenox and taken off the heparin drip and then downgraded from the ICU. While on the floor, the patient did have an echocardiogram. He is new to the area. We did not have a baseline to refer to. The patient does state that he knows he has history of heart failure and cardiomyopathy. His echocardiogram did note that there was global hypokinesis of the left ventricle with minor regional variation, an estimated EF of 30% to 35%, moderately decreased left ventricular systolic function, postsurgical hypokinesis in the interventricular septum observed consistent with valve replacement, right ventricular global systolic function moderately reduced, bioprosthetic mitral valve was present. No evidence of any significant aortic or mitral stenosis. Noting that the patient's cardiomyopathy was quite severe, we questioned whether the patient would need intervention in the form of a LifeVest or an AICD ; however, upon obtaining records from [facility], his old echocardiogram from 2017 showed similar findings. The patient has not had any change in his EF or any further structural changes to the heart since his last findings. The patient was adequately diuresed. His shortness of breath improved. He was managing off oxygen very well. The only other finding, he did have some short runs of ventricular ectopy on telemetry. It was noted that the patient's beta- stephen was stopped when he was in the ICU. Beta-stephen was restarted. He was placed on metoprolol 25 mg b.i.d. He had 1 dose of Lopressor IV for a short run of tachycardia just prior to discharge for which he was asymptomatic. His heart rate was well controlled in the 80s to 90s at discharge and he was ready for discharge back to the [facility]. The patient was noted to have leukocytosis also upon admission and productive cough. The patient does have history of smoking and COPD and while he did not have consolidation on chest x-ray, he was likely in an exacerbation of his COPD. He was placed on azithromycin and Rocephin. Initially required O2, but then was weaned off. He was also started on IV steroids and transitioned to oral prednisone. DISCHARGE DIAGNOSES: 1. Atrial fibrillation with rapid ventricular response, status post cardioversion, diltiazem drip, now rate controlled. 2. History of cardiomyopathy and fluid overload with decreased ejection fraction of 30% to 35%, at baseline. 3. History of rheumatic heart disease, status post mitral valve replacement, on permanent anticoagulation with subtherapeutic INR. 4. Shortness of breath secondary to atrial fibrillation with rapid ventricular response and fluid overload. 5. History of sleep apnea, noncompliant with his CPAP. 6. History of ventricular arrhythmias secondary to cardiomyopathy, at baseline. DISCHARGE MEDICATIONS: Include: 1. Spironolactone 25 mg 1 tablet p.o. daily. 2. Lidoderm patch 1 patch transdermal daily. 3. Digoxin 0.125 mg p.o. b.i.d. 4. Cardura 4 mg p.o. at bedtime. 5. Lisinopril 5 mg p.o. daily. 6. Levothyroxine 75 mcg 1 tablet p.o. daily. 7. Lasix 40 mg p.o. daily. 8. Prednisone 60 mg p.o. daily, taper by 10 mg q.3 days until complete. 9. Cefuroxime tablet 500 mg p.o. b.i.d. x5 more days. 10. Coumadin 7.5 mg p.o. daily. 11. Metoprolol tartrate 25 mg p.o. b.i.d., this is a change. ACTIVITY: The patient was instructed to use his wheelchair as needed for energy conservation. The patient was also instructed to use his CPAP nightly, which may also contribute to his ventricular arrhythmias. DIET: The patient was also counseled on his diet. He should have a low sodium diet, less than 2 g sodium per day. The patient did endorse dietary indiscretion prior to this episode as well, this should be monitored closely. FOLLOWUP: The patient was instructed to follow up with the clinic at [facility]. He was discharged back to the [facility]. We also recommended that the patient should have a followup with Cardiology as an outpatient. The patient would need to discuss with Cardiology the utility of having a LifeVest, which he cannot have currently as he is incarcerated at [facility] potentially for AICD evaluation as well. It was also recommended for the patient to engage in tobacco cessation and weight loss and continue to use his CPAP nightly. DISCHARGE/DISPOSITION: The patient was discharged in stable condition in the care of corrections officers from [facility]. The patient stated his understanding of his discharge instructions, medications, and followups. This information was also communicated from our heel caser to the nursing staff at [facility], who stated their understanding of the patient's discharge and followup. TIME SPENT: Forty five minutes interfacing with the patient and planning discharge plan of care. JORGE A REDDING, PAULA [id number]/[facility] #: [id number] ROHAN
== END 2018-10-13 20:30 | DRG 194 ==
LOC: ED 12:31 → ICU 14:04 → EEVIPCON 14:04 → MEDTELE 10-11 14:50
PROVIDERS: ADMIT Internal Medicine; ATTEND Internal Medicine
PROC: 5A2204Z Restoration of Cardiac Rhythm, Single (ICD-10-PCS; 2018-10-10)
PROC: 5A09357 Assistance with Respiratory Ventilation, Less than 24 Consecutive Hours, Continuous Positive Airway Pressure (ICD-10-PCS; principal; 2018-10-13)
DX: I11.0 Hypertensive heart disease with heart failure (principal); J96.00 Acute respiratory failure, unspecified whether with hypoxia or hypercapnia; J81.1 Chronic pulmonary edema; J44.1 Chronic obstructive pulmonary disease with (acute) exacerbation; I47.2 Ventricular tachycardia; I50.9 Heart failure, unspecified; G47.30 Sleep apnea, unspecified; I48.2 Chronic atrial fibrillation; D72.829 Elevated white blood cell count, unspecified; E83.42 Hypomagnesemia; M19.90 Unspecified osteoarthritis, unspecified site; F17.200 Nicotine dependence, unspecified, uncomplicated; I42.0 Dilated cardiomyopathy; R79.1 Abnormal coagulation profile; Z87.891 Personal history of nicotine dependence; Z95.2 Presence of prosthetic heart valve; Z91.19 Patient's noncompliance with other medical treatment and regimen; Z79.01 Long term (current) use of anticoagulants; Z88.8 Allergy status to other drugs, medicaments and biological substances; I49.3 Ventricular premature depolarization
CPT/HCPCS: 36415; 71045; 80048; 80053; 80162; 81003; 81015; 82550; 82803; 83605; 83735; 83880; 84100; 84484; 85025; 85610; 85730; 86140; 87040; 87641; 93005; 93306; 94660; 99285; A9270-GY; C8929; J0456; J0696; J1644; J1650; J1940; J2920; J2930; J3475; J3490; J7512

== ENCOUNTER 2018-11-27 11:11 | Inpatient (IN) | payer OTHER ==
--- NOTE | 2018-11-27 11:26 | ED ---
Syncope/Near Syncope - HPI Summary HPI Summary: This patient is a 58 year old M brought in by EMS to [facility] from [facility] accompanied by two male guards due to a syncopal episode this morning while being evaluated by the in house physician. Per [facility] report, Patient presented to physical today c/o dizziness then had marked syncope and atypical HR in the 30s. Takes Coumadin for a-fib. Last EF calculated for the 30%. EKG today shows a-fib and PVCs, needs monitoring. BP 130/60 02 94% HR 60-30 atypically. Patient reports feeling really weak and dizzy that is worsened from baseline today. He additionally reports SOB and swollen lower extremities. Patient denies chest pain. Patient is wheelchair bound at baseline. Patient was given 500ml of IV fluid by EMS, as BP was reported soft in the 90s. PMHX includes cardiac arrest (roughly 6 weeks ago), CVA, CHF, rheumatic fever, [place] years ago, and mitral valve replacement 2011. Patient is scheduled of a pacemaker next month in [place]. Patient has been in snf 30+ years and is currently smoking 4 cigarettes a day. Denies drug and etoh use. Vital signs while in room: HR 65 bpm, BP 124/58, O2 sat 97 % Regular medications include: Digoxin, Lopressor, Synthroid, spironolactone, Coumadin, and ASA today. Patient has taken morning medications. - History Of Current Complaint Hx Obtained From: Patient, EMS Onset/Duration: Sudden Onset Timing: Seconds Context: Unwitnessed, Loss Of Consciousness Activity At Onset: At Rest Associated Head Trauma: No Aggravating Factor(s): Nothing Alleviating Factor(s): Nothing Associated Signs And Symptoms: Lightheadedness, Shortness Of Breath, Other - LE swelling Related History: Similar Episode/Dx as - dizzy at baseline - Allergies/Home Medications Allergies/Adverse Reactions: Allergies Allergy/AdvReac Type Severity Reaction Status Date / Time tramadol [From [facility]] Allergy Rash Verified 11/27/18 11:30 Home Medications: Home Medications Omeprazole CAP (NF) [Prilosec CAP* 20 MG] 20 mg PO DAILY 11/27/18 [History Confirmed 11/27/18] PMH/Surg Hx/FS Hx/Imm Hx Cardiovascular History: Reports: Hx Atrial Fibrillation, Hx Congestive Heart Failure, Hx Myocardial Infarction, Hx Rheumatic Fever, Hx Valvular Heart Disease - mitral replacement, Other Cardiovascular Problems/Disorders - hx rheumatic fever Respiratory History: Reports: Hx Sleep Apnea History: Reports: Other Problems/Disorders - frequent urination Musculoskeletal History: Reports: Hx Arthritis, Hx Back Problems, Hx Gout - knee Sensory History: Reports: Hx Contacts or Glasses Denies: Hx Hearing Aid Opthamlomology History: Reports: Hx Contacts or Glasses Neurological History: Reports: Hx CVA - Surgical History Surgery Procedure, Year, and Place: mitral valve replacement - Family History Known Family History: Positive: Other - colon cancer Negative: Cardiac Disease - Social History Lives: Dormitory/Roommates - snf Alcohol Use: None Hx Substance Use: No Substance Use Type: Reports: None Hx Tobacco Use: Yes - 4 cigarettes daily Smoking Status (MU): Current Every Day Smoker Length of Time of Smoking/Using Tobacco: 30 pack years Review of Systems Negative: Chest Pain Positive: Shortness Of Breath Positive: Edema Neurological: Other - dizziness Positive: Syncope All Other Systems Reviewed And Are Negative: Yes Physical Exam - Summary Physical Exam Summary: Appearance: Ill-appearing, no pain distress, well-nourished, Patient weak for sitting up on own; states too weak to sit up unassisted Skin: Warm, color reflects adequate perfusion, dry Head: Normal Head/Face inspection, atraumatic Eyes: Conjunctiva clear ENT: Normal inspection Neck: Supple, no nodes, no JVD Respiratory: Diminished breath sounds, SOB at rest and with attempt to sit up Cardio: Irregularly irregular (a-fib and bigeminy on monitor), No murmur, pulses normal, brisk capillary refill, Midline sternal scar Abdomen: Soft, nontender Bowel sounds: Present Musculoskeletal: Strength Intact/ROM intact, no calf tenderness, 2+ pitting edema Psychological: Normal Neuro: A&O x3, CN II-XII intact, motor function 5/5, sensation intact, cerebellar normal Triage Information Reviewed: Yes Vital Signs Reviewed: Yes - Ursula Coma Scale Best Eye Response: 4 - Spontaneous Best Motor Response: 6 - Obeys Commands Best Verbal Response: 5 - Oriented Coma Scale Total: 15 Diagnostics - Laboratory Result Diagrams: 11/27/18 11:30 11/27/18 11:56 Lab Statement: Any lab studies that have been ordered have been reviewed, and results considered in the medical decision making process. - Radiology CXR Radiology Interpretation Completed By: Radiologist Summary of Radiographic Findings: Cardiomegaly. Interstitial edema is noted. No alveolar consolidation is noted. ED physician has reviewed this report. - CT Brain CT CT Interpretation Completed By: Radiologist Summary of CT Findings: Ventriculomegaly. No intracranial mass or hemorrhage is noted. ED Physician has reviewed this report. - EKG 1115 Cardiac Rate: NL - 72 BPM EKG Rhythm: Atrial Fibrillation - 72 BPM Ectopy: PVCs - Bigeminy EKG Comparison: No Significant Change - 10/12/18. No significnat change from EKG at 5 points at 0833. Summary of EKG Findings: nml IVCT nml Qtc, Bigeminey ventricular, Not a STEMI Course/Dx Course Of Treatment: 58 year old M brought in by EMS to [facility] from [facility] accompanied by two male guards due to a syncopal episode this morning while being evaluated by the in house physician. Per [facility] report, Patient presented to physical today c/o dizziness then had marked syncope and atypical HR in the 30s. Takes Coumadin for a-fib. Last EF calculated for the 30%. EKG today shows a-fib and PVCs, needs monitoring. BP 130/60 02 94% HR 60-30 atypically. Patient reports feeling really weak and dizzy that is worsened from baseline today. He additionally reports SOB and swollen lower extremities. Patient denies chest pain. Patient is wheelchair bound at baseline. Patient was given 500ml of IV fluid by EMS. Regular medications include: Digoxin, Lopressor, Synthroid, spironolactone, Coumadin, and ASA today. Patient has taken morning medications. Patient states he is scheduled for a pacemaker at [facility] next month. Aware of two critical values: INR 5.4, lactate 2.2 at 1230. Aware of troponin 0.05 at 1253 previous troponin this year was 0.04. Bloodwork remarkable for, RBC 3.73, Hgb 11.3, Hct 35, RDW 16, Abs Monocytes 1.1 , APTT 53.9, Creatinine 1.25, glucose 117, B-Natriuretic Peptide 205, Digoxin 1.4. Brain CT, as per radiologist, "Ventriculomegaly. No intracranial mass or hemorrhage is noted." CXR, as per radiologist, " Cardiomegaly. Interstitial edema is noted. No alveolar consolidation is noted." EKG reveals A-fib with Bigeminy at 72 BPM. At 1400, case discussed with hospitalist Dr. Shepherd, who recommends consulting cardiology as she is concerned for need of AICD. Case discussed with Dr. Cuevas, cardiology, who agrees to review old records and will evaluate whether patient needs AICD, disposition status pending his evaulation at 1412. Records from [facility] were requested, however [facility] patient has never been seen there. Joao agrees to admit at 15:15. Plan disclosed to patient. - Diagnoses Provider Diagnoses: Syncope, Atrial fibrillation, Ventricular bigeminy, Rheumatic heart disease, Elevated INR, Lactic acidosis, Elevated troponin level, Hx of cardiac arrest, Cardiomyopathy - Critical Care Time Critical Care Time: 30-74 min Discharge - Sign-Out/Discharge Documenting (check all that apply): Patient Departure - admit - Discharge Plan Condition: Stable Disposition: ADMITTED TO [facility] Referrals: Magno VASQUEZ,David Edmonds [Primary Care Provider] - - Attestation Statements Document Initiated by Scribe: Yes Documenting Scribe: Farzana Rowan Provider For Whom Scribe is Documenting (Include Credential): Jovita Anaya MD Scribe Attestation: Farzana Ricci, scribed for Jovita Anaya MD on 11/27/18 at 1527. Status of Scribe Document: Ready
[2018-11-27 12:05] LABS: Hematocrit 35 % (36-46); Hemoglobin 11.3 g/dL (14.0-18.0); Mean Corpuscular HGB Conc 32 g/dL (31-36); Mean Corpuscular Hemoglobin 30 pg (27-31); Mean Corpuscular Volume 93 fL (80-94); Mean Platelet Volume 8.7 fL (7.4-10.4); Platelet Count 280 10^3/uL (150-450); Red Blood Count 3.73 10^6 /uL (4.18-5.48); Red Cell Distribution Width 16 % (10.5-15); White Blood Count 9.1 10^3/uL (3.5-10.8)
[2018-11-27 12:13] LABS: Activated Partial Thrombo Time 53.9 seconds (26.0-36.3)
[2018-11-27 12:29] LABS: ALT 16 U/L (7-52); AST 22 U/L (13-39); Albumin 3.8 g/dL (3.2-5.2); Alkaline Phosphatase 37 U/L (34-104); Anion Gap 9 mmol/L (2-11); BUN/Creatinine Ratio 15.2 (8-20); Blood Urea Nitrogen 19 mg/dL (6-24); CO2 Carbon Dioxide 27 mmol/L (22-32); Calcium 8.8 mg/dL (8.6-10.3); Chloride 101 mmol/L (101-111); Creatine Kinase 142 U/L (10-223); EGFR African American 71.5 (>60); EGFR Non-African American 59.1 (>60); Globulin 3.8 g/dL (2-4); Glucose 117 mg/dL (70-100); INR 5.29 (0.77-1.02); Potassium 3.6 mmol/L (3.5-5.0); Sodium 137 mmol/L (135-145); Total Protein 7.6 g/dL (6.4-8.9)
[2018-11-27 12:33] LABS: Myoglobin 70.7 ng/mL (17.4-105.7)
[2018-11-27 12:34] LABS: CKMB ng/mL 3.2 ng/mL (0.6-6.3)
[2018-11-27 12:38] LABS: Lymphocytes % 16 %; Neutrophil % 69 %
[2018-11-27 12:39] LABS: ABS Neutrophils 6.3 10^3/ul (1.5-7.7); Monocytes % 12 %
[2018-11-27 12:40] LABS: ABS Basophils 0.1 10^3/ul (0-0.2); ABS Eosinophils 0.1 10^3/ul (0-0.6); Microcytosis 1+; Polychromasia 1+; Schistocytes 1+
[2018-11-27 12:51] LABS: Troponin I 0.05 ng/mL (<0.04)
[2018-11-27 15:08] LABS: T4, Total 9.99 mcg/dL (6.09-12.23)
[2018-11-27 15:13] LABS: Digoxin 1.4 ng/ml (0.8-2.0); TSH (Thyroid Stimulating Horm) 4.19 mcIU/mL (0.34-5.60)
[2018-11-27 15:37] LABS: Troponin I 0.06 ng/mL (<0.04)
[2018-11-27] MEDS ORDERED: Ondansetron INJ* 2 MG/ML VIAL IV PRN (15:40)
[2018-11-27] MEDS ORDERED: Potassium Chloride LIQUID* 20 MEQ PACKET PO SCH (16:00)
[2018-11-27] MEDS ORDERED: Furosemide IV* 10 MG/ML VIAL (40 MG) IV SLOW PU SCH (17:00)
[2018-11-27] MEDS: Acetaminophen TAB* 325 MG PO PRN ×2 (17:00→23:55)
--- NOTE | 2018-11-27 17:01 | CONSULT ---
Subjective Date of Service: 11/27/18 Interval History: Service: Hospitalist Admission and consult date: 11/27/2018 Patient is incarcerated at [facility] and receives primary care through them CHIEF COMPLAINT: syncope Reason for consult: Syncope HISTORY OF PRESENT ILLNESS: Mr. Harp is a 57 year old man with a history as below. He was admitted 1 month ago with a CHF exacerbation and rapid atrial fibrillation. There was no cardiac arrest as he was under the impression of. He had an unsuccessful cardioversion attempt for rapid afib in the ER. He received rate control, CHF treatment and was discharged. Today at physical therapy he was noted to be dizzy and have syncope. He has a longstanding history of syncope dating back since childhood with well over 100 fainting episodes (this is his conservative estimate could be much more than this) since childhood. He sometimes has "light " episodes and sometimes has "heavy" episodes. He is usually able to recognize the prodrome, athough this varies in duration and intensity, sit down and abort episodes. It is associated with lightheadedness and pins and needles sensation of his extremities. Today the episode come on too strongly and he fainted. He has been having these similar episodes his entire life. Pulse was felt in 30's but he does have AFib and PVC's so this was not his actual heart rate (was a pulse deficit related to pvc's) see ekg report as below with frequent pvc's. His BP after the event was noted at 130/60 mmHg after this episode. It seems that both his lasix and lisinopril were stopped on 10/27-. He has noticed worsening fatigue, edema and dyspnea after this. He is not dyspneic at rest but would be walking across a room. Of note, he had previously declined a primary prevention ICD several years ago. He saw Dr. Cazares, EP in [place] within past few weeks and has an upcoming primary prevention ICD planned in [place]. He does have frequent PVC's and Afib which could both contribute to his non-ischemic cardiomyopathy. I am unsure if there are EP plans to address this. Of note, as we progressed with patients history and evaluation and questioning ( he was under initial impression he needed a pacemaker now because of apical pulse palpation as above), he became increasing frustrated and angry. He yelled multiple profanities at me and declined any further evaluation or management from me at any time. I was unable to complete a full history/ evaluation. PAST MEDICAL HISTORY: 1. Non-ischemic cardiomyopathy, systolic heart failure 2. Atrial fibrillation. 3. Rheumatic heart disease with mitral valve replacement in 2007 PAST SURGICAL HISTORY: He had mitral valve replacement in 2007. ALLERGIES: To TORADOL. SOCIAL HISTORY: Denies any alcohol, drug abuse currently. He does smoke on a daily basis. FAMILY HISTORY: Negative for heart disease. Medications Active Medications: Acetaminophen (Tylenol Tab*) 650 mg PO Q6H PRN PRN Reason: FEVER/PAIN Furosemide (Lasix Iv*) 20 mg IV SLOW PU 0800,1700 RICCARDO Levothyroxine Sodium (Synthroid Tab*) 75 mcg PO 0600 RICCARDO Metoprolol Succinate (Toprol Xl Tab*) 25 mg PO BID RICCARDO Ondansetron HCl (Zofran Inj*) 4 mg IV Q6H PRN PRN Reason: NAUSEA Pantoprazole Sodium (Protonix Tab*) 40 mg PO DAILY RICCARDO Potassium Chloride (Klor-Con Liquid*) 40 meq PO DAILY RICCARDO Spironolactone (Aldactone Tab*) 25 mg PO DAILY [facility] Home Medications: Doxazosin TAB* [Cardura TAB*] 4 mg PO BEDTIME 10/10/18 [History Confirmed ] Levothyroxine TAB* [Synthroid 75 MCG TAB*] 1 tab PO DAILY 10/10/18 [History Confirmed 11/27/18] Spironolactone 1 tab PO DAILY 10/10/18 [History Confirmed 11/27/18] Digoxin TAB* [Lanoxin TAB*] 0.125 mg PO BID tab 10/13/18 [Rx Confirmed 11/27/18 ] Metoprolol Tartrate TAB* [Lopressor TAB*] 25 mg PO BID tab 10/13/18 [Rx Confirmed 11/27/18] Warfarin TAB(*) [Coumadin TAB(*)] 7.5 mg PO DAILY@1700 tab 10/13/18 [Rx Confirmed 11/27/18] Omeprazole CAP (NF) [Prilosec CAP* 20 MG] 20 mg PO DAILY 11/27/18 [History Confirmed 11/27/18] Review of Systems - Measurements Intake and Output: Intake and Output Last 24 Hours 11/25/18 11/26/18 11/27/18 11/28/18 06:59 06:59 06:59 06:59 Intake Total 500 Balance 500 Weight 276 lb Intake: IV Fluids 500 NS (0.45%) 500 - Review of Systems Constitutional Symptoms: Positive: Weakness, Fatigue Negative: Weight Gain, Weight Loss, Fever, Night Sweats Dermatology: Negative: Rash, Skin Lesions HEENT: Negative: Change in Hearing, Vertigo Eyes: Negative: Change in Vision, Double Vision Thyroid: Negative: Thyroid Nodule, Cold Intolerance, Heat Intolerance Pulmonary: Positive: Shortness of Breath, Exercise Intolerance Negative: Cough, Sputum, Hemoptysis, COPD Cardiology: Positive: Shortness of Breath, Edema, Faintness, Syncope Negative: Chest Pain, Palpitations, Swelling of Ankles, Peripheral Vascular Dis, Paroxysmal Nocturnal Dyspnea, Orthopnea Gastroenterology: Negative: Abdominal Pain, Nausea, Vomiting, Anorexia Genital - Urinary: Negative: Dysuria, Hematuria Musculoskeletal: Negative: Joint Pain, Joint Stiffness Endocrinology: Positive: Obesity Negative: Family Hx Endocrine Disorders, Polyuria, Gynecomastia, Pituitary Disease, Other Hematologic/Lymphatic: Positive: Use of Anticoagulant Negative: Use of Antiplatelet Drugs Neurology: Negative: Change in Balancing, Change in Coordination, Change in Memory, Hx of Stroke\\TIA, Hx Seizures Psychiatry: Negative: Unusual Anxiety, Suicidal Ideation Allergic/Immunologic: Negative: Hx HIV, Immunocompromise Review of Systems Statement: All other review of systems negative, unless stated above. Objective Vital Signs: Temp Pulse Resp BP Pulse Ox 98.9 F 62 19 136/75 97 11/27/18 16:37 11/27/18 16:37 11/27/18 16:37 11/27/18 16:37 11/27/18 16:37 Oxygen Devices in Use Now: None Laboratory Results: 11/27/18 11:30 11/27/18 11:56 INR (Anticoag Therapy) 5.29 (0.77-1.02) H* 11/27/18 11:56 APTT 53.9 seconds (26.0-36.3) H 11/27/18 11:56 Total Bilirubin 1.00 mg/dL (0.2-1.0) 11/27/18 11:56 AST 22 U/L (13-39) 11/27/18 11:56 ALT 16 U/L (7-52) 11/27/18 11:56 Alkaline Phosphatase 37 U/L (34-104) 11/27/18 11:56 CK-MB (CK-2) 3.2 ng/mL (0.6-6.3) 11/27/18 11:56 B-Natriuretic Peptide 205 pg/mL (<=100) H 11/27/18 11:56 Total Protein 7.6 g/dL (6.4-8.9) 11/27/18 11:56 Albumin 3.8 g/dL (3.2-5.2) 11/27/18 11:56 Globulin 3.8 g/dL (2-4) 11/27/18 11:56 Albumin/Globulin Ratio 1.0 (1-3) 11/27/18 11:56 TSH 4.19 mcIU/mL (0.34-5.60) 11/27/18 11:56 11/27/18 11/27/18 11:56 15:06 Troponin I 0.05 H* 0.06 H* 10/22/2017: bun 26, cr 1.05 lfts normal hgb 15.2, inr 3.11 Diagnostic Imaging: Echo 04/2017 Severe LV dilation LVEF 30% Bioprosthetic MVR noted 10/12/2018 There is global hypokinesis of the left ventricle with minor regional variation. The estimated ejection fraction is 30-35%. There is moderately decreased left ventricular systolic function. Post surgical hypokinesis of the interventricular septum is observed consistent with valve replacement. The right ventricular global systolic function is moderately reduced. A bioprosthetic mitral valve is present. There is a trace of mitral regurgitation. The mean gradient across the mitral valve is 12 mmHg. The mitral valve area, by pressure half time, is calculated at 2.2 cm2. There is trace to mild tricuspid regurgitation. Unable to estimate the right ventricular systolic pressure. There is no significant pericardial effusion. 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 Non-ischemic cardiomyopathy - LVEF 30-35% - NYHA class III 2. Bioprosthetic MVR for rheumatic fever 3. Atrial fibrillation, rate controlled anticoagulated with warfarin 4. Frequent PVC's - Reason for pulse deficit (see above) 5. Neurocardiogenic syncope - Longstanding, recurrent, reason for admission - Would restart prior lasix - Would restart prior lisinopril. Would recommend to change this to entresto as an outpatient which has been shown to decrease mortality with systolic HF - Would change metoprolol to long acting succinate 25 mg po bid instead of tartrate (tartrate not indicated for systolic HF use) - Continue aldactone - Continue warfarin - Continue digoxin but would decrease from BID to QD. His level of 1.4 is associated with excess mortality compared to a lower level of ~ 0.7 - Patient can be discharged from a cardiac standpoint and should follow up with Dr. Cazares for his previously planned primary prevention ICD. I do wonder given his frequent ectopy, prior rapid afib, and symptoms whether he would benefit from an AV node ablation and LEGAL DOCUMENT ASSISTANT in addition. I would defer this decision to his wood drill operator. Please note while I feel that the above evaluation and treatment plan is appropriate based on my evaluation, it is not technically complete given patients unwillingness to cooperate in further history or physical.
[2018-11-27 17:37] LABS: Cholesterol 142 mg/dL; HDL Cholesterol 23.3 mg/dL; LDL Cholesterol 95 mg/dL; Triglycerides 119 mg/dL
[2018-11-27 18:41] LABS: Troponin I 0.11 ng/mL (<0.04)
[2018-11-27] MEDS ORDERED: Metoprolol Tartrate TAB* 25 MG PO SCH (21:00)
[2018-11-27] MEDS: Metoprolol Succinate XL TAB* 25 MG PO SCH (21:03)
[2018-11-27 22:28] LABS: Troponin I 0.06 ng/mL (<0.04)
[2018-11-28 00:37] LABS: Troponin I 0.05 ng/mL (<0.04)
--- NOTE | 2018-11-28 01:28 | HP ---
[facility]; Dr. Nomi Montiel * ADMISSION HISTORY AND PHYSICAL: DATE OF ADMISSION: 11/27/18 [facility] MY ATTENDING WHILE IN THE HOSPITAL: Fátima Pat MD.* (DICTATED BY AJ LINDO) CONSULTING WALLBOARD WORKER: Dr. Nomi Montiel. CHIEF COMPLAINT: Syncope. HISTORY OF PRESENT ILLNESS: Mr. Harp is a 58-year-old male with a past medical history significant for heart failure, reduced ejection fraction, most recent EF of 30% to 35%, rheumatic heart disease with mitral valve replacement and AFib with RVR, with recent admission with heart rates up to the 200s, who, since his discharge on 10/14/18, has been feeling poorly with severe dyspnea on exertion and worsening symptoms of orthopnea, lower extremity edema, and has been having severe dizziness on standing, severely limiting his exercise tolerance, and 4 times upon standing he has had tunnel vision and passed out. This has not been associated with palpitations or chest pain. The patient has not had any other changes to his medications, except for discontinuation of his lisinopril and Lasix on 10/28/18. The patient had chest pain before his previous admission, but has not had any since then. The patient denies pain with urination, frequent urination, abdominal pain. The patient does have intermittent diarrhea. The patient has been having significant amount of bright red blood when he wipes after having a bowel movement. The patient states that he had a colonoscopy greater than 10 years ago and that his father at age 67 of colon cancer. The patient states that he was supposed to be seen at [facility] for a pacemaker/ICD placement later this month, but [facility] states he has never had an evaluation with them before. Due to concern for syncope, bradycardia and heart failure exacerbation, we were asked to evaluate the patient for admission to the hospital. The patient states that he has a very poor diet due to limited dietary choices and eats things that are generally high in sugar and high in salt. PAST MEDICAL HISTORY: 1. AFib with RVR. 2. Heart failure with reduced ejection fraction, EF of 30% to 35%. 4. Rheumatic heart disease, status post mitral valve replacement, permanent anticoagulation. 5. Obstructive sleep apnea, noncompliant with CPAP. 6. History of ventricular arrhythmias associated with heart failure and reduced ejection fraction. PAST SURGICAL HISTORY: Mitral valve replacement. MEDICATIONS: 1. Synthroid 75 mg p.o. daily. 2. Spironolactone 25 mg p.o. daily. 3. Doxazosin 4 mg p.o. daily. 4. Digoxin 0.125 mg p.o. b.i.d. 5. Metoprolol tartrate 25 mg p.o. b.i.d. 6. Coumadin 7.5 mg p.o. daily. 7. Omeprazole 20 mg p.o. daily. ALLERGIES: TRAMADOL. FAMILY HISTORY: The patient's father of colon cancer at age 67. The patient's mother is alive and has no medical problems that he knows of. The patient has several siblings who are alive and well as well. SOCIAL HISTORY: The patient used to smoke a pack a day and does not smoke anymore, has the intention of quitting. The denies ever being an alcoholic or having recent alcohol abuse. The patient denies illicit drug use. 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 Patient's and he has 2 children. REVIEW OF SYSTEMS: A 14-point review of systems was reviewed and is negative, except as above in the HPI. PHYSICAL EXAMINATION GENERAL: The patient is a 58-year-old male who appears his stated age and sitting comfortably in bed, in no acute distress. VITAL SIGNS: At the time of evaluation, temperature is 97.5, pulse rate 64, respiratory rate 21, oxygen saturation 98% on room air, and blood pressure 134/ 61. HEENT: Head is normocephalic and atraumatic. Sclerae are anicteric. No conjunctival injection. Nasal mucosa is moist. Oral mucosa moist. No pharyngeal erythema, discharge or exudate. NECK: Supple, nontender. No lymphadenopathy. No carotid bruits auscultated. No JVD. RESPIRATORY: Slight expiratory wheezes heard in the bilateral lower and middle lobes. Diminished breath sounds. No rales or rhonchi. CARDIAC: Irregularly irregular rhythm. No clicks, murmurs, gallops or rubs. Pulses are 2+ in the bilateral dorsalis pedis, posterior tibialis, and radial areas. 2+ bilateral lower extremity pitting edema noted. No bilateral calf tenderness. ABDOMEN: Soft, nontender, nondistended. Bowel sounds present in all 4 quadrants. No hepatosplenomegaly. No abdominal bruits auscultated. No hepatojugular reflux. GENITOURINARY: No suprapubic or CVA tenderness. NEUROLOGIC: Cranial nerves II through XII are intact. No focal deficits. Alert and oriented x3. PSYCHIATRIC: Pleasant and cooperative. SKIN: Rash with open area on the left anterior thigh. No other significant abnormalities. DIAGNOSTIC STUDIES/LAB DATA: White blood cell 9.1, hemoglobin 11.3, RDW is 16 , platelet count 280. INR 5.29, aPTT 53.9. Sodium 137, potassium of 3.6, chloride 101, carbon dioxide 27, anion gap 9, BUN 19, creatinine 1.25, glucose 117, lactic acid 2.2, calcium 8.8, bilirubin 1.0. AST 22, ALT 16, alkaline phosphatase 37, creatinine kinase 142, CK-MB 3.2, myoglobin 70.7. Troponin 0.05 , repeat 0.06. BNP 205. Protein 7.6, albumin 3.8, globulin 3.8. TSH 4.19, thyroxine 9.99. Digoxin 1.4. Studies: EKG shows atrial fibrillation with frequent PVCs. No ST segment elevation or depression. Incomplete left bundle branch block compared to previous exam, but rate is slower. No other significant changes. QTc is 457. Chest x-ray read as cardiomegaly, interstitial edema is noted. No other consolidations noted. Brain CT read as ventriculomegaly. No intracranial mass or hemorrhages noted. ASSESSMENT AND PLAN: IMPRESSION: Mr. Harp is a 58-year-old male with past medical history of heart failure, reduced ejection fraction, atrial fibrillation with rapid ventricular response, obstructive sleep apnea, ventricular arrhythmias, who was admitted with persistent dizziness when standing as well as several episodes of syncope in the last month since his discharge from this institution. 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 1. 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 The patient has been dizzy on standing. This could be related to orthostatic hypotension. This will be checked, particularly given patient being on metoprolol and doxazosin. The doxazosin will be held and his metoprolol will be changed to extended release formulation per Cardiology recommendation. The patient will be monitored on telemetry. The patient has frequent ectopy. The patient's digoxin will be held. The patient currently has a heart rate around 60. The patient's metoprolol will be continued. The patient's troponin was mildly elevated likely due to fluid overload. The patient does not have signs of acute myocardial infarction. The patient has no chest pain. The patient was seen in consultation by Dr. Nomi Montiel of Cardiology. 2. Atrial fibrillation: The patient has atrial fibrillation and previously, 1 month ago, was admitted with the heart rate in the 200 and had to be cardioverted. The patient, since then, has had issues with bradycardia and syncope. 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 The patient will be seen by Cardiology with consideration of a pacemaker. The patient's digoxin will be discontinued and his metoprolol will be continued. The patient is anticoagulated and is markedly supratherapeutic with his INR. The patient's warfarin will be held with the possibility of needing a procedure on Thursday. It will be allowed to trend down naturally and may be reversed later if needed based on his rate of decline. 3. Heart failure, reduced ejection fraction: The patient's most recent EF was 30% to 35% on echo, 1 month ago. The patient does not need a repeat echo at this time as he has not had any instance in the interim that will likely have significantly decreased his ejection fraction. For symptomatic control, the patient's digoxin level should be below 0.8. So, patient will have his digoxin held at this time for at least 2 days. The patient will have a repeat digoxin level in 2 days. At that time, the patient's digoxin likely will be resumed at once daily instead of twice daily dosing. The patient had his lisinopril stopped previously for unknown reasons. If patient's blood pressure stays within normal range, this should likely be resumed for optimization of care for his heart failure and reduced ejection fraction. We will continue patient's spironolactone and metoprolol. The patient seems to be in moderate exacerbation. We will check strict Is and Os and daily weights and give Lasix at 20 mg IV daily, which may be increased based on patient's symptoms. 4. Rheumatic heart disease/mitral valve replacement: The patient is anticoagulated and definitely continue patient's warfarin when indicted. 5. Obstructive sleep apnea: The patient is noncompliant with CPAP. We will order while in the hospital for data collection and hopeful compliance at home. 6. Rectal bleeding: The patient's bleeding is likely due to hemorrhoids and his supratherapeutic INR. However, given that the patient has not had a colonoscopy in greater than 10 years and his father at age 67 of colon cancer, particularly given his rectal bleeding and borderline iron-deficiency anemia. The patient should have a routine screening colonoscopy upon discharge and considerations should also be made for an EGD. 6. DVT prophylaxis: The patient currently supratherapeutic on his warfarin. 7. FEN: The patient will have a heart-healthy diet, without caffeine. 8. Disposition: The patient admitted to inpatient. Estimated length of stay will be greater than 2 midnights. 9. Code status: The patient will be a full code. Surrogate decision maker will his sister, Sonya. TIME SPENT: Approximately 60 minutes were spent on the admission of this patient, 30 of which was spent in [id number] with the patient, obtaining history and physical, and discussion of treatment plan. The plan was discussed with my attending, Dr. Fátima Pat, she is in agreement. AJ LINDO [id number]/CPS #: [id number] [email or web address]
[2018-11-28 03:59] LABS: ABS Basophils 0.1 10^3/ul (0-0.2); ABS Eosinophils 0.1 10^3/ul (0-0.6); ABS Monocytes 1.3 10^3/ul (0-0.8); ABS Neutrophils 9.5 10^3/ul (1.5-7.7); ABS Nucleated RBC 0 10^3/ul; Eosinophil % 0.7 %; Hematocrit 33 % (36-46); Hemoglobin 10.7 g/dL (14.0-18.0); Lymphocyte % 8.4 %; Mean Corpuscular HGB Conc 33 g/dL (31-36); Mean Corpuscular Hemoglobin 30 pg (27-31); Mean Corpuscular Volume 92 fL (80-94); Nucleated Red Blood Cells % 0.1; Platelet Count 267 10^3/uL (150-450); Red Blood Count 3.53 10^6 /uL (4.18-5.48); Red Cell Distribution Width 17 % (10.5-15)
[2018-11-28 04:15] LABS: Anion Gap 8 mmol/L (2-11); BUN/Creatinine Ratio 15.3 (8-20); Blood Urea Nitrogen 19 mg/dL (6-24); CO2 Carbon Dioxide 25 mmol/L (22-32); Calcium 8.6 mg/dL (8.6-10.3); Chloride 103 mmol/L (101-111); EGFR African American 72.2 (>60); EGFR Non-African American 59.7 (>60); Glucose 108 mg/dL (70-100); Potassium 4.1 mmol/L (3.5-5.0); Sodium 136 mmol/L (135-145)
[2018-11-28 04:45] LABS: Digoxin 1.6 ng/ml (0.8-2.0)
[2018-11-28 04:55] LABS: Troponin I 0.06 ng/mL (<0.04)
[2018-11-28] MEDS: Levothyroxine TAB* 75 MCG TAB PO SCH (05:21)
[2018-11-28 06:15] LABS: INR 5.29 (0.77-1.02)
[2018-11-28] MEDS: Furosemide IV* 10 MG/ML VIAL (40 MG) IV SLOW PU SCH ×2 (08:49→17:52)
[2018-11-28] MEDS: Pantoprazole TAB * 40 MG TAB PO SCH (08:49)
[2018-11-28] MEDS: Metoprolol Succinate XL TAB* 25 MG PO SCH ×2 (08:49→20:40)
[2018-11-28] MEDS: Spironolactone TAB* 25 MG PO SCH (08:50)
[2018-11-28] MEDS: Lisinopril TAB* 5 MG PO SCH (08:50)
[2018-11-28] MEDS ORDERED: Phytonadione Oral Solution* 5 MG/25 ML UDC PO ONE (12:31)
[2018-11-28] MEDS ORDERED: Furosemide IV* 10 MG/ML VIAL (40 MG) IV STA (12:48)
[2018-11-28 13:56] LABS: Urine Appearance Clear; Urine Bilirubin Negative (Negative); Urine Blood Negative (Negative); Urine Color Yellow; Urine Glucose Negative (Negative); Urine Ketones Negative (Negative); Urine Nitrite Negative (Negative); Urine Protein Negative (Negative); Urine Specific Gravity 1.006 (1.010-1.030); Urine Urobilinogen Negative (Negative)
--- NOTE | 2018-11-28 14:25 | PN ---
Subjective Date of Service: 11/28/18 Interval History: f/u CHF exacerbation, neurocardiogenic syncope Patient was very apologetic this AM and participated in a full history and physical Patient relates problems with recurrent LOC to not being able to use his wheelchair within his cell. He states when he was using the wheelchair all the time he had no problems with LOC and that it was taken away from him without reason about 6 months ago. tele: afib, frequent pvc's, 5 beat burst of ectopy overnight while not wearing cpap Medications Active Medications: Acetaminophen (Tylenol Tab*) 650 mg PO Q6H PRN PRN Reason: FEVER/PAIN Last Admin: 11/27/18 23:55 Dose: 650 mg Atorvastatin Calcium (Lipitor*) 20 mg PO 1700 [facility] Furosemide (Lasix Iv*) 40 mg IV SLOW PU 0800,1700 [facility] Last Admin: 11/28/18 08:49 Dose: 40 mg Levothyroxine Sodium (Synthroid Tab*) 75 mcg PO 0600 [facility] Last Admin: 11/28/18 05:21 Dose: 75 mcg Lisinopril (Prinivil Tab*) 5 mg PO DAILY [facility] Last Admin: 11/28/18 08:50 Dose: 5 mg Metoprolol Succinate (Toprol Xl Tab*) 25 mg PO BID [facility] Last Admin: 11/28/18 08:49 Dose: 25 mg Ondansetron HCl (Zofran Inj*) 4 mg IV Q6H PRN PRN Reason: NAUSEA Pantoprazole Sodium (Protonix Tab*) 40 mg PO DAILY [facility] Last Admin: 11/28/18 08:49 Dose: 40 mg Spironolactone (Aldactone Tab*) 25 mg PO DAILY [facility] Last Admin: 11/28/18 08:50 Dose: 25 mg Objective Vital Signs: Temp Pulse Resp BP Pulse Ox 98.3 F 50 18 148/53 95 11/28/18 11:37 11/28/18 11:37 11/28/18 11:37 11/28/18 11:37 11/28/18 11:37 Oxygen Devices in Use Now: None Appearance: nad, not in any distress Neck: Trachea Midline, - - uncertain jvp Respiratory: Symmetrical Chest Expansion and Respiratory Effort, Clear to Auscultation Cardiovascular: - - irregularly irregular, 1/6 murmur, sternotomy scar noted Abdominal: - - soft, obese Extremities: No Edema, No Clubbing, Cyanosis Skin: No Rash or Ulcers Neurological: Alert and Oriented x 3 Lines/Tubes/Other Access: Clean, Dry and Intact Arterial Line Laboratory Results: 11/28/18 03:53 11/28/18 03:53 INR (Anticoag Therapy) 5.29 (0.77-1.02) H* 11/28/18 03:53 APTT 53.9 seconds (26.0-36.3) H 11/27/18 11:56 Total Bilirubin 1.00 mg/dL (0.2-1.0) 11/27/18 11:56 AST 22 U/L (13-39) 11/27/18 11:56 ALT 16 U/L (7-52) 11/27/18 11:56 Alkaline Phosphatase 37 U/L (34-104) 11/27/18 11:56 CK-MB (CK-2) 3.2 ng/mL (0.6-6.3) 11/27/18 11:56 B-Natriuretic Peptide 255 pg/mL (<=100) H 11/28/18 12:49 Total Protein 7.6 g/dL (6.4-8.9) 11/27/18 11:56 Albumin 3.8 g/dL (3.2-5.2) 11/27/18 11:56 Globulin 3.8 g/dL (2-4) 11/27/18 11:56 Albumin/Globulin Ratio 1.0 (1-3) 11/27/18 11:56 Triglycerides 119 mg/dL 11/27/18 15:06 Cholesterol 142 mg/dL 11/27/18 15:06 LDL Cholesterol 95 mg/dL 11/27/18 15:06 HDL Cholesterol 23.3 mg/dL 11/27/18 15:06 TSH 4.19 mcIU/mL (0.34-5.60) 11/27/18 11:56 11/27/18 11/27/18 11/27/18 11:56 15:06 18:10 Troponin I 0.05 H* 0.06 H* 0.11 H* 11/27/18 11/28/18 11/28/18 21:58 00:09 03:53 Troponin I 0.06 H* 0.05 H* 0.06 H* digoxin level 1.6 this AM Diagnostic Imaging: Echo 04/2017 Severe LV dilation LVEF 30% Bioprosthetic MVR noted 10/12/2018 There is global hypokinesis of the left ventricle with minor regional variation. The estimated ejection fraction is 30-35%. There is moderately decreased left ventricular systolic function. Post surgical hypokinesis of the interventricular septum is observed consistent with valve replacement. The right ventricular global systolic function is moderately reduced. A bioprosthetic mitral valve is present. There is a trace of mitral regurgitation. The mean gradient across the mitral valve is 12 mmHg. The mitral valve area, by pressure half time, is calculated at 2.2 cm2. There is trace to mild tricuspid regurgitation. Unable to estimate the right ventricular systolic pressure. There is no significant pericardial effusion. 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 Non-ischemic cardiomyopathy, acute on chronic systolic HF - LVEF 30-35% - NYHA class III - This does not seem to account for all of his generalized muscle weakness 2. Bioprosthetic MVR for rheumatic fever 3. Atrial fibrillation, rate controlled anticoagulated with warfarin 4. Frequent PVC's - Reason for pulse deficit 5. Neurocardiogenic syncope - Longstanding, recurrent, reason for admission 6. Sleep apnea - Nonadherent with CPAP - Agree with diuresis IV, change to oral once fully compenated - Continue lisinopril. Would recommend to change this to entresto as an outpatient which has been shown to decrease mortality with systolic HF - Continue long acting succinate 25 mg po BID - Continue aldactone 25 mg po daily - Continue warfarin goal INR 2-3 - Continue digoxin but would hold for several days and restart at 125 mcg po QD. His level of 1.6 is associated with excess mortality compared to a lower level of ~ 0.7 or less - Patient would benefit from having access to a wheelchair at all times, including in his cell to help prevent future episodes - Patient was counseled on smoking cessation (down from 1 pack to 4 cigarettes a day) to reduce his risk of CV events and - Patient was counseled on healthy diet with goal of weight loss to reduce his risk of CV events and - Patient was counseled on using CPAP as scheduled. I am not sure the severity of his sleep apnea but this could be associated with improved heart failure outcomes. - Once fully compensated from a CHF standpoint, patient can be discharged fro a cardiac standpoint. He has previously arranged for Dr. Cazares for his previously planned primary prevention ICD. I do wonder given his frequent ectopy, prior rapid afib, and symptoms whether he would benefit from an AV node ablation and ANIMAL SCIENCE INSTRUCTOR in addition. He might also benefit from PVC reduction treatment with either medication or ablation and rhythm control. I would defer these decisions to his fiber technologist. Please note while I feel that the above evaluation and treatment plan is appropriate based on my evaluation, it is not technically complete given patients unwillingness to cooperate in further history or physical.
[2018-11-28] MEDS: Atorvastatin* 20 MG TAB PO SCH (17:52)
--- NOTE | 2018-11-28 18:04 | PN ---
Subjective Date of Service: 11/28/18 Interval History: Pt seen and examined. Meds and labs reviewed. CC: SOB ROS: Denied ANGUIANO/dizziness, F/C, N/V, CP, increased cough, sputum production, abd pain, diarrhea, constipation, dysuria, myalgias, arthralgias, throat pain, and new skin lesions. The rest of the 14 point ROS are unremarkable. PHYSICAL EXAM: GEN APPEARANCE: Awake, stops in middle of sentence to breath HEENT: NC/AT, PERRLA, moist oral mucosa, (-) throat erythema NECK: Soft, supple, (-) cervical LAD, (-)JVD HEART: S1S2 WNL, RRR, No MRG CHEST: CTA, BL, GAE, No W/R/R ABD: Soft, ND/NT, NABS 4x Q EXT: No C/C/E SKIN: Warm to touch PSYCH: No active psychosis, hallucinations, depression, SI/HI Objective Active Medications: Acetaminophen (Tylenol Tab*) 650 mg PO Q6H PRN PRN Reason: FEVER/PAIN Last Admin: 11/27/18 23:55 Dose: 650 mg Atorvastatin Calcium (Lipitor*) 20 mg PO 1700 [facility] Last Admin: 11/28/18 17:52 Dose: 20 mg Furosemide (Lasix Iv*) 40 mg IV SLOW PU 0800,1700 [facility] Last Admin: 11/28/18 17:52 Dose: 40 mg Levothyroxine Sodium (Synthroid Tab*) 75 mcg PO 0600 [facility] Last Admin: 11/28/18 05:21 Dose: 75 mcg Lisinopril (Prinivil Tab*) 5 mg PO DAILY [facility] Last Admin: 11/28/18 08:50 Dose: 5 mg Metoprolol Succinate (Toprol Xl Tab*) 25 mg PO BID [facility] Last Admin: 11/28/18 08:49 Dose: 25 mg Ondansetron HCl (Zofran Inj*) 4 mg IV Q6H PRN PRN Reason: NAUSEA Pantoprazole Sodium (Protonix Tab*) 40 mg PO DAILY [facility] Last Admin: 11/28/18 08:49 Dose: 40 mg Spironolactone (Aldactone Tab*) 25 mg PO DAILY [facility] Last Admin: 11/28/18 08:50 Dose: 25 mg Vital Signs - 8 hr 11/28/18 11:37 Temperature 98.3 F Pulse Rate 50 Respiratory 18 Rate Blood Pressure 148/53 (mmHg) O2 Sat by Pulse 95 Oximetry Oxygen Devices in Use Now: None Result Diagrams: 11/28/18 03:53 11/28/18 03:53 Microbiology and Other Data: Microbiology 11/27/18 11:54 Aerobic Blood Culture - Preliminary Blood Venous No Growth Day 1 Anaerobic Blood Culture - Preliminary No Growth Day 1 11/27/18 11:54 Aerobic Blood Culture - Preliminary Blood Venous No Growth Day 1 Anaerobic Blood Culture - Preliminary No Growth Day 1 Assess/Plan/Problems-Billing Assessment: - Patient Problems (1) Syncope Current Visit: Yes Status: Acute Code(s): R55 - SYNCOPE AND COLLAPSE SNOMED Code(s): 532308235 Comment: -Pt thought to have neurocardiogenic syncope; documented to be longstanding and recurrent -D/W Dr. Khan -Pt scheduled to have ICD due to his frequent ectopy and rapid A. fib (2) CHF exacerbation Current Visit: Yes Status: Acute Code(s): I50.9 - HEART FAILURE, UNSPECIFIED SNOMED Code(s): 33902849 Comment: -Given extra dose of Lasix this AM -Continue watchful waiting -Continue Heart healthy low sodium diet (3) Nonischemic cardiomyopathy Current Visit: Yes Status: Acute Code(s): I42.8 - OTHER CARDIOMYOPATHIES SNOMED Code(s): 73605022 Comment: -LVEF 30-35% -NYHA Class II -Continue Lisinopril and Spirinolactone and atorvastatin -Continue Metoprolol succinate (4) Atrial fibrillation Current Visit: No Status: Acute Code(s): I48.91 - UNSPECIFIED ATRIAL FIBRILLATION SNOMED Code(s): 95215835 Comment: -Continue rate control regimen -Given low dose vitamin K POno S/S of bleeding -Continue watchful waiting (5) Hypothyroidism Current Visit: Yes Status: Acute Code(s): E03.9 - HYPOTHYROIDISM, UNSPECIFIED SNOMED Code(s): 12719056 Comment: -Continue current regimen -Check TSH in AM (6) Frequent PVCs Current Visit: Yes Status: Acute Code(s): I49.3 - VENTRICULAR PREMATURE DEPOLARIZATION SNOMED Code(s): 51401921 Comment: -For outpt ICD per Dr. Khan (7) DVT prophylaxis Current Visit: No Status: Acute Code(s): LYS4440 - SNOMED Code(s): 167665117 Comment: -Pts INR supratherapeutic Status and Disposition: -For possible D/C in 1-2 days
[2018-11-29] MEDS: Levothyroxine TAB* 75 MCG TAB PO SCH (05:51)
[2018-11-29 06:53] LABS: Hematocrit 33 % (36-46); Hemoglobin 10.6 g/dL (14.0-18.0); Mean Corpuscular HGB Conc 33 g/dL (31-36); Mean Corpuscular Hemoglobin 30 pg (27-31); Mean Corpuscular Volume 93 fL (80-94); Mean Platelet Volume 8.2 fL (7.4-10.4); Platelet Count 265 10^3/uL (150-450); Red Blood Count 3.52 10^6 /uL (4.18-5.48); Red Cell Distribution Width 17 % (10.5-15); White Blood Count 14.2 10^3/uL (3.5-10.8)
[2018-11-29 07:09] LABS: Albumin 3.4 g/dL (3.2-5.2); BUN/Creatinine Ratio 20.7 (8-20); Calcium 8.7 mg/dL (8.6-10.3); EGFR African American 65.5 (>60); EGFR Non-African American 54.1 (>60); Globulin 3.4 g/dL (2-4); Magnesium 2.1 mg/dL (1.9-2.7); Phosphorus 3.8 mg/dL (2.5-5.0); Potassium 3.8 mmol/L (3.5-5.0); Total Bilirubin 1.5 mg/dL (0.2-1.0); Total Protein 6.8 g/dL (6.4-8.9)
[2018-11-29 07:24] LABS: TSH (Thyroid Stimulating Horm) 4.12 mcIU/mL (0.34-5.60)
[2018-11-29 08:39] LABS: Lymphocytes % 8 %; Monocytes % 16 %; Neutrophil % 74 %
[2018-11-29 08:43] LABS: ABS Basophils 0.14 10^3/ul (0-0.2); ABS Eosinophils 0.14 10^3/ul (0-0.6); ABS Neutrophils 10.5 10^3/ul (1.5-7.7)
[2018-11-29] MEDS: Furosemide IV* 10 MG/ML VIAL (40 MG) IV SLOW PU SCH (09:05)
[2018-11-29] MEDS: Spironolactone TAB* 25 MG PO SCH (09:06)
[2018-11-29] MEDS: Pantoprazole TAB * 40 MG TAB PO SCH (09:06)
[2018-11-29] MEDS: Metoprolol Succinate XL TAB* 25 MG PO SCH ×2 (09:06→22:48)
[2018-11-29] MEDS: Lisinopril TAB* 5 MG PO SCH (09:06)
--- NOTE | 2018-11-29 09:20 | PN ---
Subjective Date of Service: 11/29/18 Interval History: f/u CHF exacerbation, neurocardiogenic syncope no cp, dyspnea at rest tele Afib, pvc's, asymptomatic bradycardia while sleeping with untreated sleep apnea Medications Active Medications: Acetaminophen (Tylenol Tab*) 650 mg PO Q6H PRN PRN Reason: FEVER/PAIN Last Admin: 11/27/18 23:55 Dose: 650 mg Atorvastatin Calcium (Lipitor*) 20 mg PO 1700 [facility] Last Admin: 11/28/18 17:52 Dose: 20 mg Furosemide (Lasix Iv*) 40 mg IV SLOW PU 0800,1700 [facility] Last Admin: 11/29/18 09:05 Dose: 40 mg Levothyroxine Sodium (Synthroid Tab*) 75 mcg PO 0600 [facility] Last Admin: 11/29/18 05:51 Dose: 75 mcg Lisinopril (Prinivil Tab*) 5 mg PO DAILY [facility] Last Admin: 11/29/18 09:06 Dose: 5 mg Metoprolol Succinate (Toprol Xl Tab*) 25 mg PO BID [facility] Last Admin: 11/29/18 09:06 Dose: 25 mg Ondansetron HCl (Zofran Inj*) 4 mg IV Q6H PRN PRN Reason: NAUSEA Pantoprazole Sodium (Protonix Tab*) 40 mg PO DAILY [facility] Last Admin: 11/29/18 09:06 Dose: 40 mg Spironolactone (Aldactone Tab*) 25 mg PO DAILY [facility] Last Admin: 11/29/18 09:06 Dose: 25 mg Objective Vital Signs: Temp Pulse Resp BP Pulse Ox 98.6 F 32 26 120/54 99 11/29/18 07:42 11/29/18 07:42 11/29/18 07:42 11/29/18 07:42 11/29/18 07:42 Oxygen Devices in Use Now: None Appearance: nad, not in any distress Neck: Trachea Midline, - - uncertain jvp Respiratory: Symmetrical Chest Expansion and Respiratory Effort, Clear to Auscultation Cardiovascular: - - irregularly irregular, 1/6 murmur, sternotomy scar noted Abdominal: - - soft, obese Extremities: No Edema, No Clubbing, Cyanosis Skin: No Rash or Ulcers Neurological: Alert and Oriented x 3 Lines/Tubes/Other Access: Clean, Dry and Intact Arterial Line Laboratory Results: 11/29/18 06:38 11/29/18 06:38 INR (Anticoag Therapy) 5.29 (0.77-1.02) H* 11/28/18 03:53 APTT 53.9 seconds (26.0-36.3) H 11/27/18 11:56 Total Bilirubin 1.50 mg/dL (0.2-1.0) H 11/29/18 06:38 AST 21 U/L (13-39) 11/29/18 06:38 ALT 12 U/L (7-52) 11/29/18 06:38 Alkaline Phosphatase 36 U/L (34-104) 11/29/18 06:38 CK-MB (CK-2) 3.2 ng/mL (0.6-6.3) 11/27/18 11:56 B-Natriuretic Peptide 255 pg/mL (<=100) H 11/28/18 12:49 Total Protein 6.8 g/dL (6.4-8.9) 11/29/18 06:38 Albumin 3.4 g/dL (3.2-5.2) 11/29/18 06:38 Globulin 3.4 g/dL (2-4) 11/29/18 06:38 Albumin/Globulin Ratio 1.0 (1-3) 11/29/18 06:38 Triglycerides 119 mg/dL 11/27/18 15:06 Cholesterol 142 mg/dL 11/27/18 15:06 LDL Cholesterol 95 mg/dL 11/27/18 15:06 HDL Cholesterol 23.3 mg/dL 11/27/18 15:06 TSH 4.12 mcIU/mL (0.34-5.60) 11/29/18 06:38 11/27/18 11/27/18 11/27/18 11:56 15:06 18:10 Troponin I 0.05 H* 0.06 H* 0.11 H* 11/27/18 11/28/18 11/28/18 21:58 00:09 03:53 Troponin I 0.06 H* 0.05 H* 0.06 H* Diagnostic Imaging: Echo 04/2017 Severe LV dilation LVEF 30% Bioprosthetic MVR noted 10/12/2018 There is global hypokinesis of the left ventricle with minor regional variation. The estimated ejection fraction is 30-35%. There is moderately decreased left ventricular systolic function. Post surgical hypokinesis of the interventricular septum is observed consistent with valve replacement. The right ventricular global systolic function is moderately reduced. A bioprosthetic mitral valve is present. There is a trace of mitral regurgitation. The mean gradient across the mitral valve is 12 mmHg. The mitral valve area, by pressure half time, is calculated at 2.2 cm2. There is trace to mild tricuspid regurgitation. Unable to estimate the right ventricular systolic pressure. There is no significant pericardial effusion. 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 Non-ischemic cardiomyopathy, acute on chronic systolic HF - LVEF 30-35% - NYHA class III - This does not seem to account for all of his generalized muscle weakness 2. Bioprosthetic MVR for rheumatic fever 3. Atrial fibrillation, rate controlled anticoagulated with warfarin 4. Frequent PVC's - Reason for pulse deficit 5. Neurocardiogenic syncope - Longstanding, recurrent, reason for admission 6. Sleep apnea - Nonadherent with CPAP - Would change diuretic to oral - Continue lisinopril. Would recommend to change this to entresto as an outpatient which has been shown to decrease mortality with systolic HF - Continue long acting succinate 25 mg po BID - Continue aldactone 25 mg po daily - Continue warfarin goal INR 2-3 - Continue digoxin but would hold for several days and restart at 125 mcg po QD. His level of 1.6 is associated with excess mortality compared to a lower level of ~ 0.7 or less, should be rechecked as an outpatient. - Patient can be discharged from a cardiac standpoint. He has previously arranged for Dr. Cazares for his previously planned primary prevention ICD. Thank you for allowing [facility] to participate in the cardiovascular care of this patient. Please do not hesitate to contact me with questions or concerns.
[2018-11-29] MEDS: Atorvastatin* 20 MG TAB PO SCH (17:32)
--- NOTE | 2018-11-29 17:35 | PN ---
Subjective Date of Service: 11/29/18 Interval History: Pt seen and examined. Meds and labs reviewed. CC: N/A; refuses to participate w/PT and staff in evaluation ROS: Denied ANGUIANO/dizziness, F/C, N/V, CP, SOB, increased cough, sputum production , abd pain, diarrhea, constipation, dysuria, myalgias, arthralgias, throat pain , and new skin lesions. The rest of the 14 point ROS are unremarkable. PHYSICAL EXAM: GEN APPEARANCE: Awake, not in acute distress HEENT: NC/AT, PERRLA, moist oral mucosa, (-) throat erythema NECK: Soft, supple, (-) cervical LAD, (-)JVD HEART: S1S2 WNL, RRR, No MRG CHEST: CTA, BL, GAE, No W/R/R ABD: Soft, ND/NT, NABS 4x Q EXT: No C/C/E SKIN: Warm to touch PSYCH: No active psychosis, hallucinations, depression, SI/HI Objective Active Medications: Acetaminophen (Tylenol Tab*) 650 mg PO Q6H PRN PRN Reason: FEVER/PAIN Last Admin: 11/27/18 23:55 Dose: 650 mg Atorvastatin Calcium (Lipitor*) 20 mg PO 1700 [facility] Last Admin: 11/29/18 17:32 Dose: 20 mg Furosemide (Lasix Tab*) 40 mg PO DAILY [facility] Levothyroxine Sodium (Synthroid Tab*) 75 mcg PO 0600 [facility] Last Admin: 11/29/18 05:51 Dose: 75 mcg Lisinopril (Prinivil Tab*) 5 mg PO DAILY [facility] Last Admin: 11/29/18 09:06 Dose: 5 mg Metoprolol Succinate (Toprol Xl Tab*) 25 mg PO BID [facility] Last Admin: 11/29/18 09:06 Dose: 25 mg Ondansetron HCl (Zofran Inj*) 4 mg IV Q6H PRN PRN Reason: NAUSEA Pantoprazole Sodium (Protonix Tab*) 40 mg PO DAILY [facility] Last Admin: 11/29/18 09:06 Dose: 40 mg Spironolactone (Aldactone Tab*) 25 mg PO DAILY [facility] Last Admin: 11/29/18 09:06 Dose: 25 mg Vital Signs - 8 hr 11/29/18 11:29 Temperature 98.5 F Pulse Rate 55 Respiratory 24 Rate Blood Pressure 111/66 (mmHg) O2 Sat by Pulse 94 Oximetry Oxygen Devices in Use Now: None Result Diagrams: 11/29/18 06:38 11/29/18 06:38 Microbiology and Other Data: Microbiology 11/27/18 11:54 Aerobic Blood Culture - Preliminary Blood Venous No Growth Day 1 Anaerobic Blood Culture - Preliminary No Growth Day 1 11/27/18 11:54 Aerobic Blood Culture - Preliminary Blood Venous No Growth Day 1 Anaerobic Blood Culture - Preliminary No Growth Day 1 Assess/Plan/Problems-Billing Assessment: - Patient Problems (1) Syncope Current Visit: Yes Status: Acute Code(s): R55 - SYNCOPE AND COLLAPSE SNOMED Code(s): 072502800 Comment: -Pt thought to have neurocardiogenic syncope; documented to be longstanding and recurrent -D/W Dr. Montiel -Pt scheduled to have ICD due to his frequent ectopy and rapid A. fib (2) CHF exacerbation Current Visit: Yes Status: Acute Code(s): I50.9 - HEART FAILURE, UNSPECIFIED SNOMED Code(s): 26502558 Comment: -Decreased dosing frequency of Lasix and converted to PO -Continue MONICA, aldactone, and Metoprolol -Continue watchful waiting -Continue Heart healthy low sodium diet (3) Nonischemic cardiomyopathy Current Visit: Yes Status: Acute Code(s): I42.8 - OTHER CARDIOMYOPATHIES SNOMED Code(s): 48887782 Comment: -LVEF 30-35% -NYHA Class II -Continue Lisinopril and Spirinolactone and atorvastatin -Continue Metoprolol succinate (4) Atrial fibrillation Current Visit: No Status: Acute Code(s): I48.91 - UNSPECIFIED ATRIAL FIBRILLATION SNOMED Code(s): 12019764 Comment: -Continue rate control regimen -Given low dose vitamin K POno S/S of bleeding -Continue watchful waiting (5) Hypothyroidism Current Visit: Yes Status: Acute Code(s): E03.9 - HYPOTHYROIDISM, UNSPECIFIED SNOMED Code(s): 66661034 Comment: -Continue current regimen -Check TSH in AM (6) Frequent PVCs Current Visit: Yes Status: Acute Code(s): I49.3 - VENTRICULAR PREMATURE DEPOLARIZATION SNOMED Code(s): 45063564 Comment: -For outpt ICD per Dr. Khan (7) DVT prophylaxis Current Visit: No Status: Acute Code(s): POP5461 - SNOMED Code(s): 725928211 Comment: -Pts INR supratherapeutic Status and Disposition: -For possible D/C in 1-2 days -Pt refuses to participate w/PT or perform ambulatory sats---plan to do this in AM; ABG refused by pt
[2018-11-30] MEDS: Acetaminophen TAB* 325 MG PO PRN (03:47)
[2018-11-30] MEDS: Levothyroxine TAB* 75 MCG TAB PO SCH (06:18)
[2018-11-30 07:18] LABS: INR 1.95 (0.82-1.09)
[2018-11-30] MEDS: Lisinopril TAB* 5 MG PO SCH (08:35)
[2018-11-30] MEDS: Pantoprazole TAB * 40 MG TAB PO SCH (08:37)
[2018-11-30] MEDS: Spironolactone TAB* 25 MG PO SCH (08:37)
[2018-11-30] MEDS: Metoprolol Succinate XL TAB* 25 MG PO SCH (08:37)
[2018-11-30] MEDS ORDERED: Furosemide TAB* 40 MG PO SCH (09:00)
[2018-11-30] MEDS ORDERED: Furosemide IV* 10 MG/ML VIAL (40 MG) IV SLOW PU SCH (09:00)
[2018-11-30 11:47] VITALS: BP 118/41
[2018-11-30] MEDS ORDERED: Warfarin TAB(*) 6 MG PO SCH (17:00)
--- NOTE | 2018-11-30 22:00 | DS ---
CC: Dr. Jovita Anaya; Dr. Nomi Montiel; Dr. David Kiran; AJ De La Torre * DISCHARGE SUMMARY: DATE OF ADMISSION: 11/27/18 DATE OF DISCHARGE: 11/30/18 DISCHARGE CONDITION: Stable. DISCHARGE DISPOSITION: Law enforcement/court. To discharge the patient back to detention at [facility]. DISCHARGE DIAGNOSES: Are as follows: 1. Neurocardiogenic syncope. 2. Congestive heart failure exacerbation, mild. 3. Nonischemic cardiomyopathy. 4. History of atrial fibrillation. 5. History of frequent premature ventricular contractions. DISCHARGE MEDICATIONS: Are as follows: 1. Tylenol 650 mg p.o. q.6 p.r.n. 2. Atorvastatin 20 mg p.o. daily. 3. Lasix 40 mg p.o. daily. 4. Synthroid 75 mcg p.o. daily. 5. Omeprazole 20 mg p.o. daily. 6. Spironolactone 25 mg p.o. daily. 7. Coumadin 6 mg p.o. daily. 8. Digoxin 0.125 mg p.o. daily. 9. Metoprolol tartrate 25 mg p.o. b.i.d. 10. Sacubitril/valsartan 1 tablet p.o. b.i.d. 11. Warfarin 6 mg p.o. daily and for INR checks. HISTORY OF PRESENT ILLNESS/HOSPITAL COURSE: The patient is a 58-year-old gentleman with a history of CHF with an EF of 30% to 35%, rheumatic heart disease, mitral valve replacement, and AFib with RVR, on Coumadin, who was admitted on 11/27/18 due to a syncopal episode. He was also recently discharged on 10/14/18 where he mentioned that upon being discharged, he still felt poorly with severe dyspnea on exertion and worsening symptoms of orthopnea , dizziness, and lower extremity edema. This was not associated with palpitations and Lasix. He mentioned that his Lasix and lisinopril were discontinued on 10/28/18. He was brought to the ED due to concern for syncope as well as bradycardia. He was then subsequently evaluated by Dr. Montiel, who mentioned that his syncope is likely unrelated to his frequent PVCs, but likely due to a neurocardiogenic cause. The patient is also known to have been scheduled for ICD due to his frequent ectopy and rapid atrial fibrillation with Dr. Cazares. Per Dr. Montiel, he is to change his lisinopril to Entresto on discharge, which was done and sent to him as a prescription. He is to continue his long-acting metoprolol succinate, Aldactone, and Coumadin, goal being 2 to 3. His Coumadin was held for a few days since admission given he was mildly supratherapeutic. His Coumadin was adjusted to 6 mg per day and the patient is aware that he is to repeat his INR draw in 2 days postdischarge. His practitioners had been advised to continue holding his digoxin and to restart it only at 125 mcg p.o. daily. His level of 1.6 is associated with excess mortality as compared to 0.7 or less, and he was aware of this. The patient had been advised to follow up and/or call his PCP within 3 days postdischarge. Once again, he was aware that we restarted his Coumadin at the lower dose and he is to have his blood drawn in 2 days' time for PT/INR and to have this followed by his health practitioners in [place]. He is to follow up with his pipefitter helper as planned for ICD placement and as well as postdischarge followup. He was advised that if his symptoms resume or develop new ones or feel unwell for any reason, he is to call his PCP first, and if his PCP cannot entertain him due to scheduling issues alone, he is to call [facility] if the issue is not emergent. He was advised to call my office regarding any questions, concerns, or further clarifications regarding his discharge plans and/or prescriptions and to take his medications as prescribed. REVIEW OF SYSTEMS: The patient currently denies any headache, dizziness, fever , chills, nausea, vomiting, chest pain, shortness of breath, increased cough and /or sputum production, abdominal pain, diarrhea, constipation, pain and/or increased frequency on urination, myalgias or arthralgias, throat pain, or new skin lesions. The rest of the 14-point review of systems is otherwise unremarkable. PHYSICAL EXAMINATION: Reveals the most recent vital signs of record with 118/ 41 blood pressure, heart rate of 50 per minute, 98 degrees Fahrenheit, 97% saturation at room air. General Appearance: The patient is awake, alert, and oriented x3, not in acute distress. HEENT: Normocephalic, atraumatic. PERRLA. Extraocular muscles intact. Negative for icterus. Moist oral mucosa. Negative throat erythema. Neck is soft, supple with no cervical lymphadenopathy. No JVD. Heart: S1, S2 within normal limits. Regular rate and rhythm. No murmurs, rubs, or gallops. Chest: Clear to auscultation bilaterally. Good air entry. No wheezes, rales, or rhonchi. Abdomen is soft, nondistended, nontender. Normoactive bowel sounds x4 quadrants. Extremities: No cyanosis, clubbing, or edema. Psychiatric: No active psychosis, depression, suicidal or homicidal ideation. Skin is warm to touch. TIME SPENT: The total time spent evaluating the patient, reviewing pertinent data, and appropriate documentation is greater than 30 minutes. [id number]/CPS #: [id number] MTDD
== END 2018-11-30 17:14 | DRG 201 ==
LOC: ED 11:11 → MEDTELE 15:40 → EEVIPCON 15:40
PROVIDERS: ADMIT Hospitalist; ATTEND Student in an Organized Health Care Education/Training Program
DX: R00.1 Bradycardia, unspecified (principal); I50.23 Acute on chronic systolic (congestive) heart failure; E87.2 Acidosis; R55 Syncope and collapse; I48.91 Unspecified atrial fibrillation; F17.210 Nicotine dependence, cigarettes, uncomplicated; R79.1 Abnormal coagulation profile; I42.8 Other cardiomyopathies; G47.33 Obstructive sleep apnea (adult) (pediatric); M19.90 Unspecified osteoarthritis, unspecified site; M10.9 Gout, unspecified; R40.2362 Coma scale, best motor response, obeys commands, at arrival to emergency department; R40.2142 Coma scale, eyes open, spontaneous, at arrival to emergency department; R40.2252 Coma scale, best verbal response, oriented, at arrival to emergency department; I08.1 Rheumatic disorders of both mitral and tricuspid valves; I25.10 Atherosclerotic heart disease of native coronary artery without angina pectoris; I49.3 Ventricular premature depolarization; Z95.2 Presence of prosthetic heart valve; Z80.0 Family history of malignant neoplasm of digestive organs; I25.2 Old myocardial infarction; Z88.6 Allergy status to analgesic agent; Z86.74 Personal history of sudden cardiac arrest; Z86.73 Personal history of transient ischemic attack (TIA), and cerebral infarction without residual deficits; Z79.01 Long term (current) use of anticoagulants
CPT/HCPCS: 36415; 70450; 71045; 80048; 80053; 80061; 80162; 81003; 82550; 82553; 83036; 83605; 83735; 83874; 83880; 84100; 84436; 84443; 84484; 85025; 85060; 85610; 85652; 85730; 86141; 87040; 93005; 94660; 99285; A9270-GY; G8978-GP-CI; G8979-GP-CI; J1940

== ENCOUNTER 2019-02-17 09:26 | Emergency (ER) | payer OTHER ==
--- NOTE | 2019-02-17 09:49 | ED ---
Shortness of Breath - HPI Summary HPI Summary: This patient is a 58 year old M presenting to [facility] with a chief complaint of SOB since night of 02/16/19. Pt reports he was sitting watching TV, when he first had SOB, and sharp chest pains in central chest. Pt reports chest pains have since resolved. Pt reports he had previously flat lined due to heart issues at [facility]. Pt reports cough and orthopnea. Symptoms alleviated by Vicks cough drops. Pt has a history of smoking a pack/day, but has reduced to 5 cigs/ day. Pt has a PMHx of Atrial fibrillation. Pt takes blood thinners. Per triage, the patient rates the pain 5/10 in severity. - History of Current Complaint Chief Complaint: EDChestPainROMI Time Seen by Provider: 02/17/19 09:41 Hx Obtained From: Patient Onset/Duration: Lasting Hours, Still Present Timing: Constant Current Severity: Moderate - 5/10 Dyspnea At: Orthopena Alleviating Factors: OTC Meds Associated Signs & Symptoms: Cough (Nonproductive), Chest Pain Unrelated to Cough - Allergy/Home Medications Allergies/Adverse Reactions: Allergies Allergy/AdvReac Type Severity Reaction Status Date / Time tramadol [From Ultra] Allergy Rash Verified 11/27/18 11:30 Home Medications: Home Medications Atorvastatin* [Lipitor 20 MG*] 20 mg PO BEDTIME 02/17/19 [History Confirmed 06/28] Levothyroxine TAB* [Synthroid TAB*] 75 mcg PO DAILY 02/17/19 [History Confirmed 02/17/19] Spironolactone TAB* [Aldactone TAB*] 25 mg PO DAILY 02/17/19 [History Confirmed 02/17/19] Warfarin TAB(*) [Coumadin TAB(*)] 5 mg PO QPM 02/17/19 [History Confirmed ] PMH/Surg Hx/FS Hx/Imm Hx Endocrine/Hematology History: Denies: Hx Diabetes Cardiovascular History: Reports: Hx Atrial Fibrillation, Hx Congestive Heart Failure, Hx Myocardial Infarction, Hx Rheumatic Fever, Hx Valvular Heart Disease - mitral replacement, Other Cardiovascular Problems/Disorders - hx rheumatic fever Denies: Hx Peripheral Vascular Disease Respiratory History: Reports: Hx Sleep Apnea History: Reports: Other Problems/Disorders - frequent urination Musculoskeletal History: Reports: Hx Arthritis, Hx Back Problems, Hx Gout - knee Sensory History: Denies: Hx Contacts or Glasses, Hx Hearing Aid Opthamlomology History: Denies: Hx Contacts or Glasses Neurological History: Reports: Hx CVA Denies: Hx Seizures, Hx Transient Ischemic Attacks (TIA) - Surgical History Surgery Procedure, Year, and Place: mitral valve replacement Infectious Disease History: No Infectious Disease History: Denies: Traveled Outside the [place] in Last 30 Days - Family History Known Family History: Positive: Other - colon cancer Negative: Cardiac Disease - Social History Alcohol Use: None Hx Substance Use: No Substance Use Type: Reports: None Hx Tobacco Use: Yes - 4 cigarettes daily Smoking Status (MU): Heavy Every Day Tobacco Smoker Length of Time of Smoking/Using Tobacco: 30 years, 1PPD Review of Systems Positive: Chest Pain Positive: Shortness Of Breath, Cough All Other Systems Reviewed And Are Negative: Yes Physical Exam - Summary Physical Exam Summary: VITAL SIGNS: Reviewed. GENERAL: Patient is a well-developed and nourished male who is lying comfortable in the stretcher. Patient is not in any acute respiratory distress. HEAD AND FACE: No signs of trauma. No ecchymosis, hematomas or skull depressions. No sinus tenderness. EYES: PERRLA, EOMI x 2, No injected conjunctiva, no nystagmus. EARS: Hearing grossly intact. Ear canals and tympanic membranes are within normal limits. MOUTH: Oropharynx within normal limits. NECK: Supple, trachea is midline, no adenopathy, no JVD, no carotid bruit, no c- spine tenderness, neck with full ROM. CHEST: Symmetric, no tenderness at palpation. LUNGS: Bilateral wheezing CVS: Regular rate and rhythm, S1 and S2 present, no murmurs or gallops appreciated. ABDOMEN: Soft, non-tender. No signs of distention. No rebound, no guarding, and no masses palpated. Bowel sounds are normal. EXTREMITIES: FROM in all major joints, no edema, no cyanosis or clubbing. NEURO: Alert and oriented x 3. No acute neurological deficits. Speech is normal and follows commands. SKIN: Dry and warm. Triage Information Reviewed: Yes Vital Signs On Initial Exam: Initial Vitals Temp Pulse Resp BP Pulse Ox 98.6 F 109 16 115/75 96 02/17/19 09:27 02/17/19 09:27 02/17/19 09:27 02/17/19 09:27 02/17/19 09:27 Vital Signs Reviewed: Yes Diagnostics - Vital Signs Vital Signs Temp Pulse Resp BP Pulse Ox 02/17/19 09:34 105 25 02/17/19 09:27 98.6 F 109 16 115/75 96 - Laboratory Result Diagrams: 02/17/19 10:22 02/17/19 10:22 Lab Statement: Any lab studies that have been ordered have been reviewed, and results considered in the medical decision making process. - Radiology CXR Radiology Interpretation Completed By: Radiologist Summary of Radiographic Findings: CXR reveals, per radiologist, IMPRESSION: Cardiomegaly with interstitial edema consistent with CHF. ED physician has reviewed this radiology report. - EKG 0936 EKG Rhythm: Atrial Fibrillation EKG Comparison: No Significant Change - 11/28/18 Summary of EKG Findings: EKG at 0936 reveals heart rate 95 bpm, atrial fibrillation, multiple PVCs. No significant change from 11/28/18. Re-Evaluation - Re-Evaluation First Eval Re-Evaluation Time: 14:51 Comment: Patient was given written instructions. Patient will be discharged back to [facility] with the police officers. He is hemodynamically stable alert and oriented 3. Course/Dx - Course Assessment/Plan: This patient is a 58 year old M presenting to [facility] with a chief complaint of SOB since night of 02/16/19. Pt reports he was sitting watching TV, when he first had SOB, and sharp chest pains in central chest. Pt reports chest pains have since resolved. Pt reports he had previously flat lined due to heart issues at [facility]. Pt reports cough and orthopnea. Symptoms alleviated by Vicks cough drops. Pt has a history of smoking a pack/day, but has reduced to 5 cigs/day. Pt has a PMHx of Atrial fibrillation. Pt takes blood thinners. Per triage, the patient rates the pain 5/10 in severity. Blood test results without any significant abnormality except for WBCs of 12, hemoglobin 11.8, hematocrit 37 and, INR is 3.74. Creatinine is 1.26, glucose 103, BNP is 380. 2 troponins 4 hours apart negative. EKG shows atrial fibrillation at [address] elevations. The patient has multiple PVCs. Chest x-ray impression: Cardiomegaly with interstitial edema consistent with CHF. At this time I discussed my physical exam and findings with Dr. Lawrence from the hospital services will consult for this patient. Dr. Lawrence recommends for the patient to be given 40 mg or IV Lasix now, increase Lasix 60 mg IM and 40 mg p.m. just on the BiPAP machine. Nicotine patches 21 mg daily and follow up with the primary care physician. Patient was given written instructions. Patient will be discharged back to [facility] with the police officers. He is hemodynamically stable alert and oriented 3. - Diagnoses Provider Diagnoses: Atypical chest pain - Physician Notifications Discussed Care of Patient With: Beronica Lawrence Time Discussed With Above Provider: 14:02 Instructed by Provider To: Other - Discussed pt case with Dr. Lawrence, who will come see pt; 2678 - Dr. Lawrence recommends for the patient to be given 40 mg or IV Lasix now, increase Lasix 60 mg IM and 40 mg p.m. just on the BiPAP machine. Nicotine patches 21 mg daily and follow up with the primary care physician. Discharge - Sign-Out/Discharge Documenting (check all that apply): Patient Departure - Discharge Patient Received Moderate/Deep Sedation with Procedure: No - Discharge Plan Condition: Stable Disposition: HOME Patient Education Materials: Chest Pain (ED) Referrals: [facility] [Outside] - 3 Days Additional Instructions: Follow up with your primary care provider within three days. RETURN TO THE ED FOR ANY WORSENING OR NEW SYMPTOMS. - Billing Disposition and Condition Condition: STABLE Disposition: Home - Attestation Statements Document Initiated by Tien: Yes Documenting Scribe: Yajaira Salinas Provider For Whom Tien is Documenting (Include Credential): Dr. Marcos Mckeon MD Scribe Attestation: Yajaira Ricci scribed for Dr. Marcos Mckeon MD on 02/18/19 at 0817. Scribe Documentation Reviewed: Yes Provider Attestation: The documentation as recorded by the Yajaira mcdonnell accurately reflects the service I personally performed and the decisions made by me, Dr. Marcos Mckeon MD Status of Scribe Document: Viewed
[2019-02-17 10:37] LABS: ABS Basophils 0.1 10^3/ul (0-0.2); ABS Eosinophils 0.2 10^3/ul (0-0.6); ABS Lymphocytes 1.5 10^3/ul (1.0-4.8); ABS Monocytes 1.1 10^3/ul (0-0.8); ABS Neutrophils 9.1 10^3/ul (1.5-7.7); Hematocrit 37 % (42-52); Hemoglobin 11.8 g/dL (14.0-18.0); Lymphocyte % 12.5 %; Mean Corpuscular HGB Conc 32 g/dL (31-36); Mean Corpuscular Hemoglobin 26 pg (27-31); Mean Corpuscular Volume 81 fL (80-94); Mean Platelet Volume 7.9 fL (7.4-10.4); Nucleated Red Blood Cells % 0.1; Platelet Count 306 10^3/uL (150-450); Red Blood Count 4.52 10^6 /uL (4.18-5.48); Red Cell Distribution Width 18 % (10-15)
[2019-02-17 11:12] LABS: Albumin 3.8 g/dL (3.2-5.2); BUN/Creatinine Ratio 15.1 (8-20); Calcium 9.2 mg/dL (8.6-10.3); EGFR African American 70.9 (>60); EGFR Non-African American 58.6 (>60); Globulin 3.8 g/dL (2-4); Potassium 4.3 mmol/L (3.5-5.0); Total Bilirubin 0.6 mg/dL (0.2-1.0); Total Protein 7.6 g/dL (6.4-8.9)
[2019-02-17 11:14] LABS: Troponin I 0.03 ng/mL (<0.04)
[2019-02-17] MEDS ORDERED: Albuterol/Ipratropium NEB.SOL* Albuterol 2.5 MG/Ipratropium 0.5 MG 3 ML INH ONE (11:15)
[2019-02-17 11:16] LABS: CKMB ng/mL 2.8 ng/mL (0.6-6.3)
[2019-02-17 11:48] LABS: INR 3.74 (0.82-1.09)
[2019-02-17] MEDS ORDERED: Furosemide TAB* 20 MG PO ONE (13:04)
[2019-02-17] MEDS ORDERED: Furosemide IV* 10 MG/ML VIAL (40 MG) IV ONE (14:42)
[2019-02-17 14:57] VITALS: BP 116/68
--- NOTE | 2019-02-17 16:25 | CONS ---
CC: Dr. Mckeon; [facility] * CONSULTATION REPORT: DATE OF CONSULT: 02/17/19 PRIMARY CARE PROVIDER: A physician from [facility]. REQUESTING PHYSICIAN: Consultation was requested by Dr. Mckeon from the ED. CHIEF COMPLAINT: Shortness of breath. REASON FOR CONSULT: Medication management/adjustment of patient with CHF. CHIEF COMPLAINT: Shortness of breath. HISTORY OF PRESENT ILLNESS: Mr. Harp is a 58-year-old male with history of cardiomyopathy and EF of 30%, who also has history of paroxysmal atrial fibrillation and presented to the hospital complaining of shortness of breath for the past 2 days. The patient stated that he was in solitary confinement approximately 2 months ago and at that time he lost approximately 30 pounds of weight. When he was released in the past 2 months, he regained over 20 pounds of weight. He also stated that he is eating fast food that he can buy at the facility in their local stores since the food that he is given is "tasteless." In addition to that, his CPAP machine had not been calibrated for the past 2 months since he received the new one and he cannot use it at night. He noted leg swelling that has been worsening for the past several weeks and dyspnea when lying down for the past 24 hours. The patient is basically nonambulatory due to history of severe congestive heart failure and chronic lower back issues and he uses a walker. PAST MEDICAL HISTORY: 1. History of atrial fibrillation. 2. History of CHF with EF of 30% to 35%. 3. History of rheumatic heart disease, status post mitral valve replacement, on permanent anticoagulation. 4. Obstructive sleep apnea, on CPAP. 5. History of ventricular arrhythmias. 6. History of neurocardiogenic syncope for which the patient was seen at our facility in November 2018. MEDICATIONS: That he receives at [place] include: 1. Atorvastatin 20 mg daily. 2. Entresto 1 tablet b.i.d. 3. Synthroid 75 mcg daily. 4. Aldactone 25 mg daily. 5. Prilosec 20 mg daily. 6. Digoxin 0.125 mg daily. 7. Lasix 40 mg b.i.d. 8. Coumadin 5 mg daily. ALLERGIES: TRAMADOL. FAMILY HISTORY: Positive for father with colon cancer at the age of 67. Mother with no medical problems that he knows of. SOCIAL HISTORY: The patient has history of smoking close to a pack per day for most of his adult life, but he is down to 5 cigarettes a day. He denies any alcohol use. Denies illicit drug use. 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 His is . He has 2 children. REVIEW OF SYSTEMS: Please see history of present illness. All the remaining 12 systems were reviewed with the patient and were otherwise negative. PHYSICAL EXAM: Blood pressure of 118/48, heart rate of 92 and irregular, respiratory rate 16, oxygen saturation 96% on room air, temperature 98.3. General: The patient is a pleasant 58-year-old obese male who is in no acute distress. Alert, awake, and oriented x3. HEENT: Head: Atraumatic, normocephalic. Eyes: Pupils are equal, reactive to light and accommodation. Oropharynx clear. Mucosa moist. Neck: Supple. No JVD. No bruits bilaterally. Cardiovascular: Irregularly irregular rhythm. No murmur. Respiratory: Fine crackles at bilateral bases. Abdomen: Soft, nontender. Bowel sounds are present in all 4 quadrants. Extremities: There is +1 pitting pedal edema bilaterally. Pulses are +2 bilaterally. No clubbing or cyanosis. On evaluation of the skin, the patient has venous stasis discoloration of bilateral shins with no evidence of infection, acute dermatitis. Neuro Evaluation: Speech is clear. Cranial nerves II through XII grossly intact. Motor strength is 5/5 bilaterally in the bilateral upper and lower extremities. Ambulation not checked. DIAGNOSTIC STUDIES/LAB DATA: Laboratory data showed INR of 3.74. White blood cell count of 12.0, hemoglobin of 11.8, hematocrit of 37, and platelets of 306. Sodium 137, potassium 4.3, chloride 105, carbon dioxide 24, BUN 19, creatinine 1.26. Liver function tests were unremarkable. Troponin was 0.03 and 0.01. Brain natriuretic peptide 380. The patient's portable chest x-ray, impression: "Cardiomegaly with interstitial edema consistent with CHF." The patient's EKG showed atrial fibrillation with a heart rate of 95 beats per minute with occasional PVCs. ASSESSMENT AND PLAN: 1. The patient is a current smoker, who gained a significant amount of weight for the past 2 months and presents with exacerbation of acute systolic congestive heart failure. The patient is currently saturating at 95% to 97% on room air. He is not in distress. He received 20 mg of p.o. Lasix in the ED. He usually is on 40 mg of p.o. Lasix b.i.d. at home. At this point, my recommendation is to treat the patient with 40 mg of IV Lasix now and increase his Lasix at home to 60 mg in the morning and continue at 40 at night. The patient was recommended to watch his diet and use low-sodium diet and lose weight. 2. For obstructive sleep apnea, the patient will need to have his CPAP machine calibrated so he can use it at night. Not using his CPAP at this point puts an additional strain on his heart and he is aware of that. 3. The patient is a current smoker and is asking for nicotine replacement therapy. The patient is going to be recommended nicotine patch to be prescribed at discharge. 4. The patient has a history of smoking and possibility of an undiagnosed chronic obstructive pulmonary disease. At this point, he felt great improvement after he received a nebulizer treatment at the hospital. I recommended nebulizer treatment on a p.r.n. basis in the halfway. At this point, the patient feels improved after the IV Lasix enough to go back to halfway to follow up with primary care provider in 4 to 7 days. The above-mentioned recommendations were shared with Dr. Mckeon, who discharged the patient from the ED. Thank you very much for allowing our service to see the patient in consultation. TIME SPENT: Approximately 55 minutes was spent on consultation of this patient , more than half that time was spent [id number] with the patient during the interview and physical exam. [id number]/[facility] #: [id number] ROHAN
== END 2019-02-17 14:57 | disposition home or self-care (01) ==
LOC: ED 09:26
DX: R07.89 Other chest pain (principal); I48.91 Unspecified atrial fibrillation; I50.9 Heart failure, unspecified; I25.2 Old myocardial infarction; F17.210 Nicotine dependence, cigarettes, uncomplicated; Z88.8 Allergy status to other drugs, medicaments and biological substances; Z79.899 Other long term (current) drug therapy; Z79.01 Long term (current) use of anticoagulants
CPT/HCPCS: 36415; 71046; 80053; 82550; 82553; 83735; 83880; 84484; 85025; 85610; 93005; 96374; 99284; A9270-GY

== ENCOUNTER 2019-10-10 02:19 | Emergency (ER) | payer OTHER ==
[2019-10-10] MEDS ORDERED: NS 0.9% 1000 ML** 1,000 ML IV ONE ×2 (02:37→05:22)
--- NOTE | 2019-10-10 02:43 | ED ---
Altered Mental Status - HPI Summary HPI Summary: Patient is a 58 y/o M arriving via ambulance to [facility] with cc of confusion and abnormal behavior over the last few days. Patient has been c/o BLE pain with chronic ulcer wounds to the anterior legs with recent treatment at [facility]. At the correctional facility, the patient has been declining medication for two weeks (although he had some on 10/08/2019), incontinent of urine and stool, smearing feces on the wall, drinking out of the toilet, and not eating or drinking for two days. The patient was unable to ambulate d/t the pain in his legs, so nursing staff took the patients BP to find it to be hypotensive around 50/40 mmHg, warranting the patients visit to the ED. Patient currently has shingles. His pain is rated 10/ 10 in severity. He states general weakness. He is on suicide watch for recent suicidal statements. PMHx: atrial fibrillation, CHF, UT, mitral valve replacement, sleep apnea, gout, CVA, personality disorder. Current smoker, no EtOH, no substance use. Medications reviewed. Allergies noted. - History Of Current Complaint Stated Complaint: WEAKNESS PER EMS Time Seen by Provider: 10/10/19 02:22 Hx Obtained From: Patient, EMS Onset/Duration: Still Present Timing: Lasting Days Severity Initially: Moderate Severity Currently: Severe Character: Confusion Aggravating Factor(s): Other - medication non-compliance Alleviating Factor(s): Nothing - Allergies/Home Medications Allergies/Adverse Reactions: Allergies Allergy/AdvReac Type Severity Reaction Status Date / Time tramadol [From [facility]] Allergy Rash Verified 11/27/18 11:30 Home Medications: Home Medications Omeprazole CAP (NF) [Prilosec CAP* 20 MG] 20 mg PO DAILY 11/27/18 [History Confirmed 10/10/19] Digoxin TAB* [Lanoxin TAB*] 0.125 mg PO DAILY #30 tab 11/30/18 [Rx Confirmed 09/29] Atorvastatin* [Lipitor 20 MG*] 20 mg PO BEDTIME 02/17/19 [History Confirmed 09/29] Levothyroxine TAB* [Synthroid TAB*] 75 mcg PO DAILY 02/17/19 [History Confirmed 10/10/19] Spironolactone TAB* [Aldactone TAB*] 25 mg PO DAILY 02/17/19 [History Confirmed 10/10/19] Warfarin TAB(*) [Coumadin TAB(*)] 3 mg PO QPM 02/17/19 [History Confirmed ] Docusate Sodium [Colace] 100 mg PO BID 10/10/19 [History Confirmed 10/10/19] Furosemide TAB* [Lasix TAB*] 60 mg PO DAILY 10/10/19 [History Confirmed 10/10/19 ] Metoprolol Succinate [Toprol Xl] 25 mg PO DAILY 10/10/19 [History Confirmed 09/29] Tamsulosin HCl [Flomax] 0.4 mg PO DAILY 10/10/19 [History Confirmed 10/10/19] allopurinoL [Allopurinol] 100 mg PO DAILY 10/10/19 [History Confirmed 10/10/19] PMH/Surg Hx/FS Hx/Imm Hx Endocrine/Hematology History: Denies: Hx Diabetes Cardiovascular History: Reports: Hx Atrial Fibrillation, Hx Congestive Heart Failure, Hx Myocardial Infarction, Hx Rheumatic Fever, Hx Valvular Heart Disease - mitral replacement, Other Cardiovascular Problems/Disorders - hx rheumatic fever Denies: Hx Peripheral Vascular Disease Respiratory History: Reports: Hx Sleep Apnea Denies: Hx Asthma, Hx Chronic Obstructive Pulmonary Disease (COPD) History: Reports: Other Problems/Disorders - frequent urination Musculoskeletal History: Reports: Hx Arthritis, Hx Back Problems, Hx Gout - knee Sensory History: Denies: Hx Contacts or Glasses, Hx Hearing Aid Opthamlomology History: Denies: Hx Contacts or Glasses Neurological History: Reports: Hx CVA Denies: Hx Seizures, Hx Transient Ischemic Attacks (TIA) Psychiatric History: Reports: Other Psychiatric Issues/Disorders - personality disorder - Surgical History Surgical History: Yes Surgery Procedure, Year, and Place: mitral valve replacement - Family History Known Family History: Positive: Other - colon cancer Negative: Cardiac Disease - Social History Alcohol Use: None Hx Substance Use: No Substance Use Type: Reports: None Hx Tobacco Use: Yes - 4 cigarettes daily Smoking Status (MU): Heavy Every Day Tobacco Smoker Length of Time of Smoking/Using Tobacco: 30 years, 1PPD Review of Systems Positive: Other - bowel incontinence, decreased oral intake Positive: incontinence Positive: Other - painful ulcerations on the anterior low BLE Positive: Weakness All Other Systems Reviewed And Are Negative: Yes Physical Exam - Summary Physical Exam Summary: Constitutional: Ill-appearing, appears older than stated age Skin: Vesicular and scabbing rash to the R abdomen and R flank, Chronic leg wounds; HENT: Dry mucous membranes; Atraumatic Eyes: Conjunctiva normal Neck: Musculoskeletal ROM normal neck. (-) JVD, (-) Stridor, (-) Nuchal rigidity Cardio: Irregular rate and rhythm, Heart sounds normal; No palpable radial pulses. (-) Murmur Pulmonary/Chest wall: Effort normal. (-) Respiratory distress, (-) Wheezes, (-) Rales Abd: Soft, (-) tenderness, (-) Distension, (-) Guarding, (-) Rebound. Scant ecchymosis lower abdomen Musculoskeletal: (-) Edema Lymph: (-) Cervical adenopathy Neuro: Alert, Oriented x3, moving all extremities. No focal deficits Psych: intermittently agitated, redirectable Triage Information Reviewed: Yes Vital Signs Reviewed: Yes Procedures - Sedation Patient Received Moderate/Deep Sedation with Procedure: No Diagnostics - Laboratory Result Diagrams: 10/10/19 04:52 10/10/19 04:52 Lab Statement: Any lab studies that have been ordered have been reviewed, and results considered in the medical decision making process. - Radiology CXR Radiology Interpretation Completed By: ED Physician Summary of Radiographic Findings: Interstitial edema. Cardiomegaly. ED physician has reviewed and interpreted this imaging scan. Pending official read. - CT Abd/Pel CT CT Interpretation Completed By: Radiologist Summary of CT Findings: Impression: 1. Bilateral pleural effusions right greater than left with associated atelectasis. The right pleural effusion is moderate it in size. 2. Atrophy of the left kidney. 3. Bilateral renal cortical cysts which appear to be simple cysts. 4. Moderate volume of abdominal ascites. 5. Increased density within the gallbladder. This could represent sludge. ED physician has reviewed this report. - EKG 0241 Cardiac Rate: Other Rate - 107 BPM EKG Rhythm: Atrial Fibrillation Summary of EKG Findings: An EKG at 0241 reveals atrial fibrillation at 107 BPM. Significant artifact. No STEMI. ED physician has reviewed and interpreted this EKG. Re-Evaluation - Re-Evaluation First Eval Re-Evaluation Time: 03:50 Comment: K 6.1, given albuterol/insulin/glucose. Second Eval Re-Evaluation Time: 05:25 Change: Unchanged - repeat labs w K 6.1, Cr worsening. Jef transfer to OSH w emergent dialysis capability Altered Mental Statu Course/Dx - Course Course Of Treatment: 58 -year-old male with a history of CHF and A. fib, presenting with hypotension, altered mental status. -On arrival to ED, patient blood pressure 50s or 40s, 220-gauge IVs established, given 2 is of fluids initially. Physical examination ill-appearing male, excoriations and vesicular lesions to the right abdomen concerning for zoster. Also has chronic lower extremity wounds to lower extremities. Patient given 2 L of fluids which improved blood pressure. Initial labs notable for hemoglobin of 9.6 which is slightly lower than his prior around 11. Fecal occult negative. INR 4.5, patient denies taking recent medications however per MAR took (on warfarin) . CMP potassium is 6.1, CO2 of 12. Given albuterol/insulin/glucose. Elevated creatinine of 2.6, BUNs of 126. Lactic acid was 6.6, patient was initially given 2 L of fluids with concern for heart failure. Chest x-ray does show some pulmonary edema, patient was given an additional third liter of normal saline with concern for severe sepsis. Covered broadly with vanc/zosyn and also acyclovir given zoster. Patient mentating better after IVF, do not suspect meningitis/encephalitis at this time. Elevated bilirubin to 6. Noncontrast CT of the abdomen shows biliary sludge. Additionally troponin of 0.15, and a BNP of 1290 likely in the setting of the cause of heart failure. EKG was A. fib. Patient denies chest pain. Repeat labs with worsening creatinine, potassium still 6.1. Additional dose of albuterol, insulin, glucose. Patient to be transferred to the ICU at [place] for possible emergent dialysis. - Diagnoses Provider Diagnoses: Acute renal failure, Sepsis, Hyperkalemia, Elevated troponin, Heart failure, Uremia - Provider Notifications Discussed Care Of Patient With: Jumana Ruiz - hospitalist Time Discussed With Above Provider: 03:55 Instructed by Provider To: Other - I discussed the patient's case with Dr. Ruiz, who will come see the patient in the ED. She requests noncon abd/pel CT. Dr. Ruiz recommends transfer to [facility] ICU for dialysis and renal failure. [facility] does not have beds available, will consult [facility]. [facility] also does not have any beds available, will consults [facility]. Dr. Garcia at [facility] accepts patient for transfer for emergent dialysis capability with ICU bed availabilty. Reason For Transfer: Specialty or service not available at [facility] Patient not appropriate for [facility]. - Critical Care Time Critical Care Time: 75-104 min - 75 minutes Discharge ED - Sign-Out/Discharge Documenting (check all that apply): Patient Departure - Patient accepted for transfer at [facility]. - Discharge Plan Condition: Stable Disposition: TRANS HIGHER LVL OF CARE FAC Referrals: No Primary Care Phys,NOPCP [Medical Doctor] - - Billing Disposition and Condition Condition: STABLE Disposition: Trans Higher Lvl of Care Fac - Attestation Statements Document Initiated by Tien: Yes Documenting Scribe: Nataliya Abraham Provider For Whom Tien is Documenting (Include Credential): Dr. Eugenia Paula MD Scribe Attestation: Nataliya Ricci, scribed for Dr. Eugenia Paula MD on 10/10/19 at 0619. Scribe Documentation Reviewed: Yes Provider Attestation: The documentation as recorded by the Nataliya mcdonnell accurately reflects the service I personally performed and the decisions made by me, Dr. Eugenia Paula MD Status of Scribe Document: Viewed
[2019-10-10] MEDS: NS 0.9% 1000 ML** 1,000 ML IV ONE (02:56)
[2019-10-10] MEDS ORDERED: Piperacillin/Tazobac ADVAN(*) 3.375 GM in NS 0.9% 100 ML* 100 ML IVPB ONE (02:57)
[2019-10-10] MEDS ORDERED: Acyclovir IV(*) 500 MG/10 ML 100 ML VIAL (500 MG) IVPB SCH (03:00)
[2019-10-10] MEDS ORDERED: Vancomycin(*) 1,000 MG VIAL IVPB SCH (03:00)
[2019-10-10] MEDS ORDERED: Vancomycin 1500 MG IV - x ONCE IVPB ONE ×2 (03:15)
[2019-10-10 03:36] LABS: Activated Partial Thrombo Time 54.4 seconds (26.0-38.0); INR 4.44 (0.82-1.09)
[2019-10-10 03:42] LABS: ABS Lymphocytes 0.1 10^3/ul (1.0-4.8); ABS Monocytes 0.8 10^3/ul (0-0.8); ABS Neutrophils 9.3 10^3/ul (1.5-7.7); ABS Nucleated RBC 0.3 10^3/ul; Eosinophil % 0.1 %; Hematocrit 33 % (42-52); Hemoglobin 9.6 g/dL (14.0-18.0); Lymphocyte % 1.3 %; Mean Corpuscular HGB Conc 29 g/dL (31-36); Mean Corpuscular Hemoglobin 21 pg (27-31); Mean Corpuscular Volume 72 fL (80-94); Mean Platelet Volume 8.9 fL (7.4-10.4); Nucleated Red Blood Cells % 2.9; Platelet Count 224 10^3/uL (150-450); Red Blood Count 4.55 10^6 /uL (4.18-5.48); Red Cell Distribution Width 23 % (10-15); White Blood Count 10.2 10^3/uL (3.5-10.8)
[2019-10-10 03:46] LABS: ALT 189 U/L (7-52); AST 206 U/L (13-39); Albumin 3.3 g/dL (3.2-5.2); Albumin/Globulin Ratio 0.9 (1-3); Alkaline Phosphatase 81 U/L (34-104); BUN/Creatinine Ratio 47.5 (8-20); Blood Urea Nitrogen 126 mg/dL (6-24); Calcium 8.8 mg/dL (8.6-10.3); Chloride 104 mmol/L (101-111); EGFR African American 30.1 (>60); EGFR Non-African American 24.8 (>60); Globulin 3.6 g/dL (2-4); Glucose 107 mg/dL (70-100); Sodium 136 mmol/L (135-145); Total Protein 6.9 g/dL (6.4-8.9)
[2019-10-10 03:49] LABS: Anion Gap 20 mmol/L (2-11); CO2 Carbon Dioxide 12 mmol/L (22-32); Potassium 6.1 mmol/L (3.5-5.0); Troponin I 0.15 ng/mL (<0.03)
[2019-10-10] MEDS ORDERED: Albuterol (2.5 MG) 0.5 % CONC 2.5 MG/0.5 ML NEB.SOLN (ICU and ED only) INH ONE ×2 (03:50→06:18)
[2019-10-10] MEDS ORDERED: Insulin REGULAR(*) 1 UNITS UNIT IV PUSH ONE ×2 (03:51→06:18)
[2019-10-10] MEDS ORDERED: Dextrose 50% Syringe 50 ML* 25 GM/50 ML SYRINGE IV PUSH ONE (03:51)
[2019-10-10] MEDS ORDERED: Acyclovir IV(*) 700 MG in NS 0.9% 250 ML* 250 ML IVPB ONE (04:00)
[2019-10-10 04:06] LABS: Microcytosis 1+; Polychromasia 1+
[2019-10-10 04:09] LABS: Burr Cells 1+
[2019-10-10 04:32] LABS: Digoxin 0.6 ng/ml (0.8-2.0)
[2019-10-10 04:52] LABS: Free T4 0.95 ng/dL (0.61-1.12)
--- NOTE | 2019-10-10 05:00 | CONSULT ---
Consult Consult: Awaiting repeat labs since we do not have access to emergent dialysis overnight. Also CT abd/pelvis read to rule out biliary obstruction.
[2019-10-10 05:12] LABS: Hematocrit 33 % (42-52); Hemoglobin 9.3 g/dL (14.0-18.0); Mean Corpuscular HGB Conc 28 g/dL (31-36); Mean Corpuscular Hemoglobin 21 pg (27-31); Mean Corpuscular Volume 74 fL (80-94); Mean Platelet Volume 8.4 fL (7.4-10.4); Platelet Count 206 10^3/uL (150-450); Red Blood Count 4.48 10^6 /uL (4.18-5.48); Red Cell Distribution Width 23 % (10-15); White Blood Count 11.2 10^3/uL (3.5-10.8)
[2019-10-10 05:18] LABS: Albumin 3.3 g/dL (3.2-5.2); Albumin/Globulin Ratio 0.9 (1-3); Calcium 8.8 mg/dL (8.6-10.3); EGFR African American 28.6 (>60); EGFR Non-African American 23.6 (>60); Globulin 3.5 g/dL (2-4); Total Bilirubin 6.1 mg/dL (0.2-1.0); Total Protein 6.8 g/dL (6.4-8.9)
[2019-10-10 05:26] LABS: Potassium 6.1 mmol/L (3.5-5.0)
[2019-10-10 05:41] LABS: BUN/Creatinine Ratio 48.4 (8-20)
[2019-10-10] MEDS ORDERED: Dextrose 50% Syringe 50 ML* 25 GM/50 ML SYRINGE IV PUSH PRN (06:18)
[2019-10-10 08:16] VITALS: BP 143/65
== END 2019-10-10 08:15 | disposition short-term general hospital (02) ==
LOC: ED 02:19
DX: A41.9 Sepsis, unspecified organism (principal); N17.9 Acute kidney failure, unspecified; R79.89 Other specified abnormal findings of blood chemistry; E87.5 Hyperkalemia; I50.9 Heart failure, unspecified; I25.2 Old myocardial infarction; F17.210 Nicotine dependence, cigarettes, uncomplicated; Z86.73 Personal history of transient ischemic attack (TIA), and cerebral infarction without residual deficits; Z95.4 Presence of other heart-valve replacement; Z79.01 Long term (current) use of anticoagulants; Z79.890 Hormone replacement therapy; Z79.899 Other long term (current) drug therapy
CPT/HCPCS: 36415; 71045; 74176; 80053; 80162; 82270; 82803; 83605; 83880; 84439; 84443; 84484; 85025; 85027; 85060; 85610; 85730; 87040; 93005; 96361; 96365; 96367; 99285; J0133; J2543; J3370; J7611